=== PATIENT | male | born 1950 | race Caucasian/White ===

== ENCOUNTER 2020-04-02 09:24 | Emergency (ER) | payer MEDICARE, OTHER, SELFPAY ==
[2020-04-02 09:35] VITALS: BP 145/78; PULSE 103; RESP 16; TEMP 36.7; O2SAT 99
--- NOTE | 2020-04-02 09:56 | ED.GENADULT ---
HPI - General Adult General Chief complaint: Eye Problems Stated complaint: EYE REDNESS Time Seen by Provider: 04/02/20 09:56 Source: patient Mode of arrival: ambulatory Limitations: no limitations History of Present Illness HPI narrative: 70-year-old male patient presents to the [facility] with complaints of right eye redness for the past 2 days. Patient states it has been itchy and noticed today that it was more red than it was yesterday. Patient states he has had a little bit of clear tearing from the area but no copious amounts of discharge or colored discharge. Denies any sensation of a foreign body. Denies any sensitivity to the light. Patient denies any injury that he is aware of. Patient states he has been playing a lot of golf lately but denies working out in the yard. Denies any fevers, body aches or chills. Denies any stuffy nose, runny nose or sneezing. Related Data Home Medications Medication Instructions Recorded Confirmed amlodipine 5 mg PO DAILY 06/14/19 04/02/20 aspirin [Adult Low Dose Aspirin] 81 mg PO DAILY 06/14/19 04/02/20 doxazosin 8 mg PO DAILY 06/14/19 04/02/20 doxycycline hyclate 100 mg PO DAILY 06/14/19 04/02/20 dutasteride 0.5 mg PO DAILY 06/14/19 04/02/20 fenofibrate 160 mg PO DAILY 06/14/19 04/02/20 fexofenadine 180 mg PO DAILY 06/14/19 04/02/20 glucos sul [id number] cap PO 06/14/19 [Glucosamine Chondroitin] hydrochlorothiazide 12.5 mg PO BID 06/14/19 04/02/20 rosuvastatin 20 mg PO DAILY 06/14/19 04/02/20 testosterone 1 packet TRANSDERMAL DAILY 06/14/19 04/02/20 trazodone 50 mg PO HS 06/14/19 04/02/20 valsartan-hydrochlorothiazide 1 tablet PO DAILY 06/14/19 04/02/20 Allergies Allergy/AdvReac Type Severity Reaction Status Date / Time No Known Allergies Allergy Verified 04/02/20 09:30 Review of Systems Review of Systems: Narrative: CONSTITUTIONAL: Denies fever, chills, or sweats. EYES: Denies visual changes, positive right eye redness, with clear discharge. ENT: Denies rhinorrhea, congestion, sore throat, or otalgia. CARDIOVASCULAR: Denies chest pain, palpitations, or edema. RESPIRATORY: Denies cough or dyspnea. GASTROINTESTINAL: Denies abdominal pain, nausea, vomiting, or diarrhea. GENITOURINARY: Denies dysuria or hematuria. SKIN: Denies rash or itching. MUSCULOSKELETAL: Denies back pain, joint pain, or myalgia. NEUROLOGIC: Denies headache, numbness, or weakness. PSYCHIATRIC: Denies anxiety or depression. [facility] Past Medical History Medical History Bronchitis Diverticulitis Surgical History Surgical History H/O colonoscopy Social History Social History Smoking status: Never smoker Alcohol intake: current Comments At the time of my signature I agree with nursing past medical history, surgical, social, and family history. There is no relevant family history pertinent to the presenting complaint. Exam Narrative: Exam Narrative: GENERAL: Well-appearing, well-nourished, and in no acute distress. HEAD: Normocephalic, atraumatic. EYES: PERRLA and EOM intact without limitation or complaint of pain, no periorbital soft tissue swelling ,no erythema, warmth or tenderness noted, no obvious deformity. No crusting or swelling.no tearing or draining.No photophobia. No nystagmus No FB or lesion on lid eversion. Corneas grossly clear, no obvious FB or hyphens/hypopyon. injection to right sclera. Erythema and swelling noted to the right conjunctive a lids and lashes clear. ENT: Nares clear, no rhinorrhea or epistaxis. Mucous membranes moist. NECK: Supple. No lymphadenopathy CHEST: Clear to auscultation. No respiratory distress. HEART: Regular rate and rhythm. No murmur heard. Normal peripheral pulses. ABDOMEN: Soft, nontender, nondistended, normal active bowel sounds. EXTREMITIES: Normal range of motion. No edema. SKI
== END 2020-04-02 10:21 | disposition home or self-care (01) ==
PROVIDERS: Emergency Provider Nurse Practitioner Family; PCP Family Medicine Sports Medicine
DX: B30.9 Viral conjunctivitis, unspecified (principal); Z79.82 Long term (current) use of aspirin; E78.00 Pure hypercholesterolemia, unspecified; I10 Essential (primary) hypertension; Z95.5 Presence of coronary angioplasty implant and graft
CPT/HCPCS: 99213; A9270; G0463

== ENCOUNTER 2022-05-09 13:09 | Outpatient (CLI) | payer MEDICARE, OTHER, SELFPAY ==
--- NOTE | ~2022-05-09 | US_ITS ---
EXAMINATION: US venous doppler [facility] DATE: 05/09/2022 13:52 INDICATION: LEFT LEG PAIN . TECHNIQUE: Grayscale images without and with compression and Doppler images of the left lower extremi ty veins were obtained. COMPARISON: None FINDINGS: The left common femoral vein, profunda femoral vein, femoral vein, popliteal vein, peroneal vein, pos terior tibial veins, gastrocnemius vein, and greater saphenous vein are patent. IMPRESSION: 1. Patent left lower extremity veins. No evidence of deep venous thrombosis. Reviewed, dictated and finalized at location K. ICAL OPERATIONS SPECIALIST
== END 2022-05-09 13:10 | disposition home or self-care (01) ==
PROVIDERS: PCP Family Medicine Sports Medicine; Visit Provider Orthopaedic Surgery
DX: M79.605 Pain in left leg (principal); Z47.1 Aftercare following joint replacement surgery; Z96.652 Presence of left artificial knee joint
CPT/HCPCS: 93971

== ENCOUNTER 2023-04-29 17:19 | Inpatient (IN) | payer MEDICARE, OTHER, SELFPAY ==
--- NOTE | ~2023-04-29 | CT_ITS ---
CT of the Abdomen and Pelvis: Indication: Diverticulitis Technique: 2.5 mm axial scans were obtained through the abdomen and pelvis following intravenous adm inistration of 100 cc of Omnipaque 350. Dose reduction technique was used on this scan by utilizing a utomated exposure control and iterative reconstruction technique. The dose-length product (DLP) was 1 119.28 mGy-cm. Findings: Scans through the lung bases are unremarkable. The liver, spleen, pancreas, gallbladder, adrenals and kidneys are within normal limits. There are at herosclerotic calcifications of the aorta. No lymphadenopathy. There is wall thickening and inflammatory change of the distal descending colon, compatible with acut e diverticulitis. There is a small pericolonic abscess with small air-fluid level measuring 3 cm in d iameter (axial image 121). No bowel obstruction. Small fat-containing umbilical hernia noted. Images through the pelvis were performed. Prostate gland is probably enlarged, and indents through th e bladder base. Urinary bladder otherwise unremarkable. No ascites. Impression: Diverticulitis of the distal descending colon, with 3 cm pericolonic abscess. Enlarged prostate gland which indents through the bladder base. Reviewed, dictated and finalized at location . UCTION CONTROL TECHNOLOGIST Impression: Diverticulitis of the distal descending colon, with 3 cm pericolonic abscess. Enlarged prostate gland which indents through the bladder base.
--- NOTE | ~2023-04-29 | US_ITS ---
EXAMINATION: US guide abscess drainage DATE: 04/30/2023 15:13 INDICATION: Diverticular abscess TECHNIQUE: The procedure including the risks and benefits was discussed with the patient. Risks discu ssed included bleeding including hemorrhage and bile peritonitis. Oral and written consent were obtai melissa. The patient was confirmed to be receiving appropriate antibiotic coverage. The skin overlying t he anterolateral left abdominal wall was prepped and draped in usual sterile fashion. Anesthetic was administered with 1% lidocaine subcutaneously. An 8.5 Fr catheter was inserted into the abscess cavi ty by trocar technique under continuous sonographic guidance. The metal stiffener and trocar needle w ere removed, and the pigtail tip was locked. 5 mL of opaque appiah-colored purulent appearing fluid was aspirated and sent for culture. The catheter was stitched to the skin with suture. An additional adhe sive fixation device was applied. There were no immediate complications. FINDINGS: 3.4 x 3.1 x 1.8 cm loculated anechoic fluid collection consistent corresponding to the absc ess seen on prior CT is seen along the anterior abdominal wall. Subsequent images demonstrate the kamala inage catheter advanced into the abscess. 5 mm of opaque appiah-colored purulent appearing fluid was asp irated and sent to lab for cultures. On real-time imaging at the conclusion procedure the formed loop of the catheter is present within the nearly decompressed abscess cavity. IMPRESSION: 1. Successful ultrasound-guided left abdominal percutaneous abscess drain catheter placement. 2. 5 mL of purulent appearing fluid was sent for aerobic, anaerobic, and fungal cultures. 3. The catheter will be managed by Dr. English. Reviewed, dictated and finalized at location A. ENT SEWER HAND IMPRESSION: 1. Successful ultrasound-guided left abdominal percutaneous abscess drain tisha ter placement. 2. 5 mL of purulent appearing fluid was sent for aerobic, anaerobic, and fungal cultures. 3. The catheter will be managed by Dr. English.
[2023-04-29 18:28] VITALS: BP 112/84; PULSE 94; RESP 18; TEMP 36.3; O2SAT 99
[2023-04-29 20:11] LABS: Basophils Percent Auto 0.2 % (0.2-1.2); Eosinophils Absolute Auto 0.1 K/mm3 (0-0.3); Eosinophils Percent Auto 0.9 % (0-4.4); Hematocrit 42.7 % (42.0-52.0); Hemoglobin 14.1 g/dL (14.0-18.0); Immature Granulocyte Absolute 0.04 K/mm3 (0.00-0.031); Immature Granulocyte Percent A 0.4 % (0-0.5); Lymphocytes Percent Auto 11.1 % (18.3-44.2); Mean Corpuscular Hemoglobin 30.7 pg (26-34); Mean Platelet Volume 9.2 fl (7.4-10.4); Monocytes Absolute Auto 1.3 K/mm3 (0.1-0.6); Monocytes Percent Auto 14.8 % (2.6-8.5); Neutrophils Absolute Auto 6.5 K/mm3 (1.3-6.7); Neutrophils Percent Auto 72.6 % (45.5-73.1); Platelet Count Result 224 k/mm3 (150-375); Red Blood Count 4.59 M/mm3 (4.6-6.20); Red Cell Distribution Width 13.4 % (11.5-14.5)
[2023-04-29 20:23] LABS: Alanine Aminotransferase 23 U/L (6-50); Albumin Level 4.5 g/dL (3.5-5.1); Alkaline Phosphatase 80 U/L (38-126); Anion Gap 13 mmol/L (8-16); Aspartate Amino Transferase 25 U/L (17-59); Bilirubin,Total 0.6 mg/dL (0.2-1.3); Blood Urea Nitrogen 27 mg/dL (9-20); Calcium 10.3 mg/dL (8.4-10.2); Carbon Dioxide 24 mmol/L (22-30); Chloride 97 mmol/L (98-107); Estimated CRCL calculation 41 ml/min; Estimated Glomerular Filt Rate 40; Glucose 109 mg/dL (65-110); Lipase 144 U/L (23-300); Potassium 4.1 mmol/L (3.4-5.0); Sodium 134 mmol/L (137-145)
[2023-04-29 20:34] LABS: Appearance Urine Clear (Clear); Bilirubin Urine Negative (Negative); Blood Urine Negative (Negative); Color Urine Yellow (Yellow); Glucose Urine UA Negative (Negative); Ketones Urine Negative (Negative); Leukocyte Esterase Ur Negative LEU/UL (Negative); Nitrate Urine Negative (Negative); Protein Urine Negative (Negative); Specific Grav Ur 1.012 (1.001-1.035); Urobilinogen Urine 0.2 mg/dL (<2.0)
[2023-04-29 20:45] LABS: Add Urine Microscopic? NO
[2023-04-29 21:49] VITALS: BP 137/76; PULSE 95; RESP 18; O2SAT 100
[2023-04-29 23:49] VITALS: BP 173/87; PULSE 94; RESP 18; O2SAT 100
[2023-04-30] VITALS (10 sets, daily range): BP systolic 134–166; BP diastolic 71–85; PULSE 89–103; RESP 16–18; TEMP 36.2–36.8; O2SAT 96–100; BMI 30.9
--- NOTE | 2023-04-30 00:35 | ED.ABDPAIN ---
HPI - Abdominal Pain General Chief Complaint: Abdominal Pain Stated Complaint: diverticulitis Time Seen by Provider: 04/29/23 23:48 History of Present Illness HPI narrative: The patient is a 73-year-old male with a history of hypertension presenting with abdominal pain. Patient states that he has had several bouts of diverticulitis over the 2 years. States that he has been having left-sided abdominal pain for the last week. Patient has been treated with oral antibiotics by his PCP. Today he went in for follow-up and was complaining of persistent pain so a CT abdomen pelvis was obtained and showed an abscess so he was advised to come in for evaluation. States that the pain is in the left lower quadrant. Reports decreased appetite but no vomiting. No further complaints. Related Data Home Medications Medication Instructions Recorded Confirmed amlodipine 5 mg tablet 5 mg PO DAILY 06/14/19 04/30/23 aspirin 81 mg tablet,delayed 81 mg PO DAILY 06/14/19 04/30/23 release (Adult Low Dose Aspirin) doxazosin 8 mg tablet 8 mg PO DAILY 06/14/19 04/30/23 dutasteride 0.5 mg capsule 0.5 mg PO DAILY 06/14/19 04/30/23 glucosamine sulf dipot 1 cap PO DAILY 06/14/19 04/30/23 chlr,msm,chond 550 mg-C 30 mg-nadine 1 mg capsule (Glucosamine Chondroitin) rosuvastatin 20 mg tablet 20 mg PO DAILY 06/14/19 04/30/23 Daily Multivitamin 1 tab-cap PO DAILY 04/30/23 04/30/23 celecoxib 200 mg capsule 200 mg PO BID 04/30/23 04/30/23 fenofibrate micronized 134 mg 134 mg PO DAILY 04/30/23 04/30/23 capsule metoprolol succinate 50 mg 50 mg PO DAILY 04/30/23 04/30/23 tablet,extended release 24 hr trazodone 100 mg tablet 100 mg PO HS 04/30/23 04/30/23 triamterene 37.5 1 cap PO DAILY 04/30/23 04/30/23 mg-hydrochlorothiazide 25 mg capsule Allergies Allergy/AdvReac Type Severity Reaction Status Date / Time No Known Allergies Allergy Verified 04/29/23 23:54 Review of Systems Review of Systems: All systems reviewed & are unremarkable except as noted in HPI and below PMFSH Past Medical History Medical History BPH (benign prostatic hyperplasia) Bronchitis Hypertension ADRIANNA (obstructive sleep apnea) Surgical History Surgical History H/O colonoscopy History of knee replacement, total History of tonsillectomy Family History Family History Mother Breast cancer Father Diabetes mellitus Social History Social History Smoking packs per day: 2 Smoking cigarettes per day: 40.0 Years smoked: 20 Smoking pack-years: 40.00 Smoking status: Former smoker Alcohol intake: current Drinks per week: 4 Alcohol use details: Drinks 1-2 alcoholic beverages about 4 times per week Substance use: never Lack of Transportation: No Lack of Food: Never True Current Housing: I Have Housing Concerned About Future Housing: No Difficulty Paying Gas/Electric Bills: No Difficulty Paying for Meds: No Currently Unemployed: No Education: Decline to Answer Difficulty w/ Childcare or Family Care: No Spiritual care concerns: No Exam Narrative: GENERAL: Well-appearing, nontoxic, no acute distress HEAD: Normocephalic, atraumatic. EYES: PERRLA and EOMI. ENT: Mucous membranes moist. NECK: Supple. CHEST: No respiratory distress. HEART: Regular rate and rhythm ABDOMEN: Soft, + left lower quadrant tenderness without guarding rebound EXTREMITIES: Normal range of motion. No edema. SKIN: Warm, dry, no rash. NEURO: No focal deficits. Alert and oriented x3. PSYCH: Normal mood and affect. Course Vital Signs Vital signs: Vital Signs Temperature 97.4 F L 04/29/23 18:28 Pulse Rate 94 04/29/23 18:28 Respiratory Rate 18 04/29/23 18:28 Blood Pressure 112/84 04/29/23 18:28 Pulse Oximetr
[2023-04-30] MEDS: SODIUM CHLORIDE 0.9% IV 1,000 ML 999 ML IV CONT (00:50)
[2023-04-30] MEDS: HYDROmorphone HCL INJ (*CRX) 1 MG/ML SYR 0.5 MG IV PUSH ×4 (00:51→15:26)
[2023-04-30] MEDS: PIPERACILLIN/TAZ 4.5G/NS 100ML 4.5 GM/100 ML BAG IVPB (00:55)
--- NOTE | 2023-04-30 08:50 | PM.IMHP ---
H&P: HPI History of Present Illness Date/Time: 04/30/23 08:50 Chief Complaint: abdominal pain Narrative: 73-year-old male with history of hypertension and diverticulosis is presenting with abdominal pain. Patient reports 2 week history of left-sided abdominal pain. He disease PCP recommended antibiotics. However, symptoms continued to progress and therefore he presented to the ER. CT abdomen and pelvis was concerning for abscess knee was admitted for IV antibiotics and further care. No chest pain or shortness of breath. No nausea, vomiting or diarrhea. No fevers or chills. He does admit to a decreased appetite. Review of Systems Review of Systems: 12 point review of systems was assessed and was negative except as noted in the HPI [facility] Past Medical History Medical History BPH (benign prostatic hyperplasia) Bronchitis Hypertension ADRIANNA (obstructive sleep apnea) Surgical History Surgical History H/O colonoscopy History of knee replacement, total History of tonsillectomy Family History Family History Mother Breast cancer Father Diabetes mellitus Social History Social History Smoking packs per day: 2 Smoking cigarettes per day: 40.0 Years smoked: 20 Smoking pack-years: 40.00 Smoking status: Former smoker Alcohol intake: current Drinks per week: 4 Alcohol use details: Drinks 1-2 alcoholic beverages about 4 times per week Substance use: never Lack of Transportation: No Lack of Food: Never True Current Housing: I Have Housing Concerned About Future Housing: No Difficulty Paying Gas/Electric Bills: No Difficulty Paying for Meds: No Currently Unemployed: No Education: Decline to Answer Difficulty w/ Childcare or Family Care: No Spiritual care concerns: No Meds Home Medications and Allergies Home Medications Medication Instructions Recorded Confirmed Type amlodipine 5 mg tablet 5 mg PO DAILY 06/14/19 04/02/20 History aspirin 81 mg tablet,delayed 81 mg PO DAILY 06/14/19 04/02/20 History release (Adult Low Dose Aspirin) doxazosin 8 mg tablet 8 mg PO DAILY 06/14/19 04/02/20 History doxycycline hyclate 100 mg capsule 100 mg PO DAILY 06/14/19 04/02/20 History dutasteride 0.5 mg capsule 0.5 mg PO DAILY 06/14/19 04/02/20 History fenofibrate 160 mg tablet 160 mg PO DAILY 06/14/19 04/02/20 History fexofenadine 180 mg tablet 180 mg PO DAILY 06/14/19 04/02/20 History glucosamine sulf dipot cap PO 06/14/19 History chlr,msm,chond 550 mg-C 30 mg-nadine 1 mg capsule (Glucosamine Chondroitin) hydrochlorothiazide 12.5 mg capsule 12.5 mg PO BID 06/14/19 04/02/20 History rosuvastatin 20 mg tablet 20 mg PO DAILY 06/14/19 04/02/20 History testosterone 50 mg/5 gram (1 %) 1 packet transdermal DAILY 06/14/19 04/02/20 History transdermal gel trazodone 50 mg tablet 50 mg PO HS 06/14/19 04/02/20 History valsartan 160 1 tablet PO DAILY 06/14/19 04/02/20 History mg-hydrochlorothiazide 12.5 mg tablet ketotifen fumarate 0.025 % (0.035 1 drop ophthalmic (eye) BID PRN 04/02/20 Rx %) eye drops (Zaditor) allergy symptoms 5 days #5 mL Allergies Allergy/AdvReac Type Severity Reaction Status Date / Time No Known Allergies Allergy Verified 04/29/23 23:54 Vital Signs Vital Signs - 24 hr 04/29/23 18:28 04/29/23 21:49 04/29/23 23:49 Temperature 97.4 F L Pulse Rate 94 95 94 Respiratory Rate 18 18 18 Blood Pressure 112/84 137/76 173/87 H Pulse Oximetry 99 100 100 Oxygen Delivery Room Air 04/30/23 01:53 04/30/23 03:44 04/30/23 05:50 Temperature Pulse Rate 102 H 89 Respiratory Rate 18 16 Blood Pressure 166/81 H 152/85 H 154/76 H Pulse Oximetry 100 97 Oxygen Delivery 04/30/23 06:01 04/30/23 07:42 Temperature 97.7
[2023-04-30 09:30] LABS: Basophils Percent Auto 0.3 % (0.2-1.2); Eosinophils Absolute Auto 0.1 K/mm3 (0-0.3); Eosinophils Percent Auto 0.9 % (0-4.4); Hemoglobin 12.4 g/dL (14.0-18.0); Immature Granulocyte Absolute 0.03 K/mm3 (0.00-0.031); Immature Granulocyte Percent A 0.3 % (0-0.5); Lymphocytes Absolute Auto 0.96 K/mm3 (0.9-3.2); Mean Corpuscular HGB Conc 33.5 g/dl (32-36); Mean Corpuscular Hemoglobin 31.2 pg (26-34); Mean Corpuscular Volume 93.2 fl (80-100); Mean Platelet Volume 9.1 fl (7.4-10.4); Monocytes Absolute Auto 1.3 K/mm3 (0.1-0.6); Monocytes Percent Auto 15.3 % (2.6-8.5); Neutrophils Absolute Auto 6.3 K/mm3 (1.3-6.7); Neutrophils Percent Auto 72.2 % (45.5-73.1); Platelet Count Result 213 k/mm3 (150-375); Red Blood Count 3.97 M/mm3 (4.6-6.20); Red Cell Distribution Width 13.6 % (11.5-14.5); White Blood Count 8.7 K/mm3 (4.5-10.0)
[2023-04-30 09:41] LABS: Alanine Aminotransferase 19 U/L (6-50); Alkaline Phosphatase 66 U/L (38-126); Anion Gap 12 mmol/L (8-16); Aspartate Amino Transferase 26 U/L (17-59); Bilirubin,Total 0.5 mg/dL (0.2-1.3); Blood Urea Nitrogen 28 mg/dL (9-20); Calcium 9.6 mg/dL (8.4-10.2); Carbon Dioxide 24 mmol/L (22-30); Chloride 100 mmol/L (98-107); Estimated CRCL calculation 50 ml/min; Estimated Glomerular Filt Rate 50; Glucose 107 mg/dL (65-110); Potassium 3.9 mmol/L (3.4-5.0); Sodium 136 mmol/L (137-145)
--- NOTE | 2023-04-30 09:47 | PM.CNGS ---
Assessment and Plan Assessment and plan (1) Diverticulitis of intestine with abscess: Code(s): K57.80 - Diverticulitis of intestine, part unspecified, with perforation and abscess without bleeding Status: Acute Assessment and Plan: CT evidence of diverticulitis of the distal descending colon and a 3 cm pericolonic abscess. No peritoneal signs on exam. WBC count normal. Discussed the case with Dr. English and reviewed the CT with the Radiologist. Will keep him NPO for now and order US-guided percutaneous drainage. Continue IV Zosyn, IV fluids, and analgesics as needed. Okay to start clear liquids after drain is placed. (2) Acute kidney injury: Code(s): N17.9 - Acute kidney failure, unspecified Status: Acute Assessment and Plan: Creatinine 1.7 on admission. No known history of chronic kidney disease. Repeat labs ordered this morning. Will initiate maintenance IV fluids. Could be related to dehydration as he has not been drinking much lately. Management per primary service. (3) Hypertension: Code(s): I10 - Essential (primary) hypertension Status: Acute Assessment and Plan: Okay to resume home medications per primary service. (4) ADRIANNA (obstructive sleep apnea): Code(s): G47.33 - Obstructive sleep apnea (adult) (pediatric) Status: Acute Assessment and Plan: Patient brought his home CPAP. Plan I have discussed the patient's case and plan of care with Dr. English. Thank you for allowing us to see the patient in consultation and we will continue to follow along with you. History of Present Illness Consult details Consult date: 04/30/23 Reason for consult: other (Diverticulitis with abscess) Requesting physician: Gely Woods MD Narrative: This is a 73-year-old man who we have been asked to see in surgical consultation for diverticulitis with abscess. He reports having a right total knee arthroplasty about 5 weeks ago. He was taking narcotics postoperatively and became constipated. He took multiple laxatives, stool softeners, and enemas. A few days after surgery, he began moving his bowels and started having multiple loose stools. About a week ago, he developed left lower quadrant abdominal pain. He saw his primary care provider last , who prescribed him ciprofloxacin and metronidazole with suspicion of diverticulitis. He has had 3 episodes in the last 20 years that were treated with antibiotics as an outpatient. His abdominal pain improved, but overall he was still feeling unwell. He had some mild intermittent nausea, but no vomiting. No fever or chills. He had a follow-up appointment yesterday and was still having some abdominal pain without much improvement. His PCP ordered labs and a CT scan at [place] as an outpatient that showed diverticulitis with an abscess. He was called with these results and instructed to go to the ER. He decided to come to [facility]. CT scan of the abdomen and pelvis here showed diverticulitis of the distal descending colon with a 3 cm pericolonic abscess, and a large prostate gland that indents through the bladder base. Labs were significant for acute kidney injury with a creatinine 1.7. He denies any known history of chronic kidney disease. He admits to not drinking well since his surgery about 5 weeks ago and has noticed dark urine over the past few days. White blood cell count was normal. He was admitted and given 1 dose of IV Zosyn and 1 L of IV fluids in the ER. He is currently NPO and seen on the medical floor. His abdominal pain improved with the IV Dilaudid. His last colonoscopy was 1 year ago and reported normal other than findings of diverticulosis. Denies any previous abdominal surgeries. There is a small fat containing umbilical hernia on CT, which she denies any symptoms of or noticing a bulge from this. Review of Systems Review of Systems: All systems reviewed & are unremarkable except as noted in HPI an
[2023-04-30 10:44] LABS: Partial Thromboplastin Time 28.1 SECONDS (22.3-36.8)
[2023-04-30] MEDS: SODIUM CHLORIDE 0.9% IV 1,000 ML 100 ML IV CONT (11:37)
[2023-04-30] MEDS: PIPERACILLN/TAZ 3.375GM/NS50ML 3.375 GM/50 ML BAG IVPB ×2 (11:38→17:38)
[2023-04-30] MEDS: DOXAZOSIN MESYLATE 4 MG TABLET 8 MG PO (17:36)
[2023-04-30] MEDS: TRIAMTERENE 37.5 MG/HCTZ 25 MG (MAXZIDE) TABLET 1 TAB PO (17:36)
[2023-04-30] MEDS: METOPROLOL SUCCINATE EXT REL 50 MG TABCR PO (17:37)
[2023-04-30] MEDS: DUTASTERIDE 0.5 MG CAPSULE PO (17:37)
[2023-04-30] MEDS: amLODIPine BESYLATE 5 MG TABLET PO (17:37)
[2023-04-30] MEDS: ASPIRIN 81 MG ENTERIC TABLET PO (17:37)
[2023-04-30] MEDS: HYDROmorphone HCL INJ (*CRX) 1 MG/ML SYR IV PUSH ×2 (17:54→21:41)
[2023-04-30] MEDS: traZODone HCL 50 MG TABLET 100 MG PO (20:15)
[2023-04-30] MEDS: MELATONIN 5 MG TABLET PO (20:15)
[2023-04-30 21:50] LABS: Toxigenic C. Diff NEGATIVE (NEGATIVE)
[2023-05-01] VITALS (9 sets, daily range): BP systolic 142–155; BP diastolic 65–83; PULSE 79–91; RESP 14–18; TEMP 36.1–36.8; O2SAT 95–99
[2023-05-01] MEDS: PIPERACILLN/TAZ 3.375GM/NS50ML 3.375 GM/50 ML BAG IVPB ×3 (00:19→11:22)
[2023-05-01] MEDS: HYDROmorphone HCL INJ (*CRX) 1 MG/ML SYR IV PUSH ×2 (00:43→04:13)
[2023-05-01 06:46] LABS: Basophils Percent Auto 0.3 % (0.2-1.2); Eosinophils Absolute Auto 0.1 K/mm3 (0-0.3); Hematocrit 37.8 % (42.0-52.0); Hemoglobin 12.1 g/dL (14.0-18.0); Immature Granulocyte Absolute 0.05 K/mm3 (0.00-0.031); Immature Granulocyte Percent A 0.6 % (0-0.5); Lymphocytes Absolute Auto 1.16 K/mm3 (0.9-3.2); Lymphocytes Percent Auto 13.5 % (18.3-44.2); Mean Corpuscular Hemoglobin 30.6 pg (26-34); Mean Corpuscular Volume 95.5 fl (80-100); Mean Platelet Volume 9.5 fl (7.4-10.4); Monocytes Absolute Auto 1.4 K/mm3 (0.1-0.6); Monocytes Percent Auto 15.9 % (2.6-8.5); Neutrophils Absolute Auto 5.9 K/mm3 (1.3-6.7); Neutrophils Percent Auto 68.7 % (45.5-73.1); Platelet Count Result 236 k/mm3 (150-375); Red Blood Count 3.96 M/mm3 (4.6-6.20); Red Cell Distribution Width 13.7 % (11.5-14.5); White Blood Count 8.6 K/mm3 (4.5-10.0)
[2023-05-01 07:05] LABS: Alanine Aminotransferase 17 U/L (6-50); Albumin Level 3.9 g/dL (3.5-5.1); Alkaline Phosphatase 63 U/L (38-126); Anion Gap 10 mmol/L (8-16); Aspartate Amino Transferase 23 U/L (17-59); Bilirubin,Total 0.5 mg/dL (0.2-1.3); Blood Urea Nitrogen 23 mg/dL (9-20); Calcium 9.2 mg/dL (8.4-10.2); Carbon Dioxide 26 mmol/L (22-30); Chloride 100 mmol/L (98-107); Estimated CRCL calculation 58 ml/min; Estimated Glomerular Filt Rate 60; Glucose 101 mg/dL (65-110); Potassium 3.7 mmol/L (3.4-5.0); Sodium 136 mmol/L (137-145)
[2023-05-01] MEDS: ACETAMINOPHEN 500 MG TABLET 1000 MG PO ×3 (08:33→20:29)
[2023-05-01] MEDS: TRIAMTERENE 37.5 MG/HCTZ 25 MG (MAXZIDE) TABLET 1 TAB PO (08:34)
[2023-05-01] MEDS: MULTIVITAMINS THERAPEUTIC TAB (*BKC) 1 TABLET PO (08:34)
[2023-05-01] MEDS: DOXAZOSIN MESYLATE 4 MG TABLET 8 MG PO (08:34)
[2023-05-01] MEDS: DUTASTERIDE 0.5 MG CAPSULE PO (08:34)
[2023-05-01] MEDS: amLODIPine BESYLATE 5 MG TABLET PO (08:34)
[2023-05-01] MEDS: ASPIRIN 81 MG ENTERIC TABLET PO (08:35)
[2023-05-01] MEDS: METOPROLOL SUCCINATE EXT REL 50 MG TABCR PO (08:35)
--- NOTE | 2023-05-01 10:31 | PM.PNGS ---
Progress Note: A&P Assessment and Plan (1) Diverticulitis of intestine with abscess: Code(s): K57.80 - Diverticulitis of intestine, part unspecified, with perforation and abscess without bleeding Status: Acute Assessment and Plan: Continues to improve, s/p perc drainage yesterday in IR, no output from the perc drain overnight or this morning. His pain seems to be related to the perc drain, which I removed today at the bedside. Will add additional oral analgesics and encouraged to reduce IV Dilaudid if possible. Will advance diet as tolerated to low fiber. Consult the dietitian. If he is able to tolerate a low fiber diet and pain improves after drain is removed, then he can discharge home later today on oral antibiotics and follow-up with Dr. English in 2 weeks. (2) Acute kidney injury: Code(s): N17.9 - Acute kidney failure, unspecified Status: Acute Assessment and Plan: Improving, creatinine down to 1.2 Plan I have discussed the patient's case and plan of care with Dr. English. Subjective Subjective Date/Time Seen: 05/01/23 10:31 Patient reports: no new complaints, voiding w/o difficulty, flatus, bowel movement (loose stools, no blood in stool) and afebrile Interval history: Patient reports having pain through the night. His LLQ abdominal pain has improved, but his pain is a different pain at the perc drain site. He reports it was very painful when they put it on suction and he keeps having quick intermittent stabbing pains at the perc drain site. No nausea or vomiting. Tolerating clear liquids. No output from perc drain since placement yesterday. Review of Systems Review of Systems: All systems reviewed & are unremarkable except as noted in HPI and below Exam Const: General: comfortable and no acute distress Orientation/consciousness: patient oriented x3 GI: Inspection: non-distended GI Palp: Yes Soft to palpation, Yes Tenderness to palpation present (GI) (only tender at the perc drain site), No Guarding due to palpation present (GI) and No Rebound tenderness present Auscultation: normal bowel sounds Other: perc drain in LLQ with scant serous output Objective Data Vital Signs Vital Signs: Vital Signs - 24 hr 04/30/23 13:49 04/30/23 17:37 04/30/23 22:00 Temperature 97.1 F L 98.3 F Pulse Rate 92 96 90 Respiratory Rate 18 16 Blood Pressure 161/81 H 134/71 Pulse Oximetry 98 98 04/30/23 22:35 05/01/23 02:48 05/01/23 04:17 Temperature Pulse Rate Respiratory Rate Blood Pressure Pulse Oximetry 96 96 96 05/01/23 06:00 05/01/23 08:35 Temperature 98.2 F Pulse Rate 91 82 Respiratory Rate 14 Blood Pressure 155/82 H Pulse Oximetry 96 Intake/Output Intake/Output: Intake & Output 04/28/23 04/29/23 04/30/23 05/01/23 23:59 23:59 23:59 23:59 Intake Total 1440 590 Output Total 5 Balance 1435 590 Meds/Results Medications: Active Medications Generic Name Dose Route Start Last Admin Trade Name Freq PRN Reason Stop Dose Admin Acetaminophen 1,000 mg 04/30/23 09:54 05/01/23 08:33 Acetaminophen 500 Mg Tablet PO 1,000 mg Q6H PRN Administration Mild Pain (1-3) or Fever Amlodipine Besylate 5 mg 04/30/23 16:30 05/01/23 08:34 Amlodipine Besylate 5 Mg Tablet PO 5 mg DAILY NOVA Administration Aspirin 81 mg 04/30/23 16:35 05/01/23 08:35 Aspirin 81 Mg Enteric Tablet PO 81 mg DAILY NOVA Administration Doxazosin Mesylate 8 mg 04/30/23 16:35 05/01/23 08:34 Doxazosin Mesylate 4 Mg Tablet PO 8 mg DAILY NOVA Administration Dutasteride 0.5 mg 04/30/23 16:35 05/01/23 08:34 Dutasteride 0.5 Mg Capsule PO 0.5 mg DAILY NOVA Administration Hydromorphone HCl 1 mg 04/30/23 16:35 05/01/23 04:13 Hydromorphone Hcl Inj (*Crx) 1 Mg/Ml Syr IV PUSH 1 mg Q3H PRN Administration Pain Rated 7-10 Piperacillin/Tazobactam/Dextrose 3.375 gm in 50 mls @ 100 mls/hr 04/30/23 08:40 05/01/23 05:
--- NOTE | 2023-05-01 13:29 | PM.IMPN ---
Progress Note: A&P Assessment and Plan (1) Diverticulitis: Code(s): K57.92 - Diverticulitis of intestine, part unspecified, without perforation or abscess without bleeding Status: Deleted Assessment and Plan: CT scan shows a 3 cm pericolonic abscess and acute diverticulitis of the distal descending colon. Patient underwent successful ultrasound-guided left abdominal percutaneous abscess drain with removal of 5 mL of purulent material Abscess culture results pending. General surgery is consulted Started on Zosyn 04/30. Changed to levaquin/Flagyl on 05/01 Feels much better today. Drain was removed by General surgery earlier today. Diet was started with plans to advance as tolerated. Still was requiring Dilaudid earlier today but nothing since this morning. (2) Hypertension: Code(s): I10 - Essential (primary) hypertension Status: Acute Assessment and Plan: Patient's blood pressure was reviewed on 05/01 Blood pressure elevated at times probably related to pain. Will continue current medications. Continue to follow. (3) Acute kidney injury: Code(s): N17.9 - Acute kidney failure, unspecified Status: Acute Assessment and Plan: No baseline creatinine values to compare but creatinine was 1.7 on admission. With IV fluids, creatinine has trended down to 1.2. He is on max side which has been continued. Will stop IV fluids. Stop ibuprofen. (4) ADRIANNA (obstructive sleep apnea): Code(s): G47.33 - Obstructive sleep apnea (adult) (pediatric) Status: Acute Assessment and Plan: Compliant with treatment. Continue the same. Plan DVT prophylaxis with SCDs GI prophylaxis not indicated Code status full code Subjective Date/time seen: 05/01/23 13:29 Interval history: 73yo male with ADRIANNA and HTN here for abdominal pain Assuming care. Chart reviewed. Patient feels well today. Minimal abdominal pain. No chest pain. No shortness of breath. Tolerating full liquid diet. Positive bowel movements. Exam Narrative: AF 98.2 155/82 14 97% ra Gen - NARD Chest - CTA bilaterally, nml RR CV - RRR S1/S2 Abd -soft. Minimal tenderness lower left dressing is clean, dry and intact. Ext - No pedal edema Psych - Nml mood and affect Skin - Warm and dry Objective Data Vital Signs Vital Signs: Vital Signs - 24 hr 04/30/23 13:49 04/30/23 17:37 04/30/23 22:00 Temperature 97.1 F L 98.3 F Pulse Rate 92 96 90 Respiratory Rate 18 16 Blood Pressure 161/81 H 134/71 Pulse Oximetry 98 98 Oxygen Delivery 04/30/23 22:35 05/01/23 02:48 05/01/23 04:17 Temperature Pulse Rate Respiratory Rate Blood Pressure Pulse Oximetry 96 96 96 Oxygen Delivery 05/01/23 06:00 05/01/23 08:35 05/01/23 08:34 Temperature 98.2 F Pulse Rate 91 82 Respiratory Rate 14 Blood Pressure 155/82 H Pulse Oximetry 96 97 Oxygen Delivery Room Air Intake/Output Intake/Output: Intake & Output 04/28/23 04/29/23 04/30/23 05/01/23 23:59 23:59 23:59 23:59 Intake Total 1440 640 Output Total 5 Balance 1435 640 Meds/Results Medications: Active Medications Generic Name Dose Route Start Last Admin Trade Name Freq PRN Reason Stop Dose Admin Acetaminophen 1,000 mg 04/30/23 09:54 05/01/23 08:33 Acetaminophen 500 Mg Tablet PO 1,000 mg Q6H PRN Administration Mild Pain (1-3) or Fever Hydrocodone Bitart/Acetaminophen 1 tab 05/01/23 10:32 Hydrocodone/Acetaminophen (*Crx) 5-325 Mg Tablet PO Q4H PRN Pain Rated 4-6 Amlodipine Besylate 5 mg 04/30/23 16:30 05/01/23 08:34 Amlodipine Besylate 5 Mg Tablet PO 5 mg DAILY NOVA Administration Aspirin 81 mg 04/30/23 16:35 05/01/23 08:35 Aspirin 81 Mg Enteric Tablet PO 81 mg DAILY NOVA Administration Doxazosin Mesylate 8 mg 04/30/23 16:35 05/01/23 08:34 Doxazosin Mesylate 4 Mg Tablet PO 8 mg DAILY NOVA Administration Dut
[2023-05-01] MEDS: metroNIDAZOLE 500 MG TABLET PO ×2 (14:15→20:28)
[2023-05-01] MEDS: levoFLOXacin 750 MG TABLET PO (14:15)
[2023-05-01] MEDS: HYDROcodone/acetaminophen (*CRX) 5-325 MG TABLET 1 TAB PO (16:23)
[2023-05-01] MEDS: traZODone HCL 50 MG TABLET 100 MG PO (20:28)
[2023-05-01] MEDS: MELATONIN 5 MG TABLET PO (20:28)
[2023-05-02] MEDS: ACETAMINOPHEN 500 MG TABLET 1000 MG PO ×2 (02:40→08:03)
[2023-05-02 04:08] VITALS: O2SAT 98
[2023-05-02] MEDS: metroNIDAZOLE 500 MG TABLET PO (05:51)
[2023-05-02 06:00] VITALS: BP 149/82; PULSE 77; RESP 18; TEMP 36.5; O2SAT 98
[2023-05-02 06:33] LABS: Basophils Percent Auto 0.4 % (0.2-1.2); Eosinophils Absolute Auto 0.1 K/mm3 (0-0.3); Eosinophils Percent Auto 1.6 % (0-4.4); Hematocrit 37.2 % (42.0-52.0); Hemoglobin 12.4 g/dL (14.0-18.0); Immature Granulocyte Absolute 0.03 K/mm3 (0.00-0.031); Immature Granulocyte Percent A 0.4 % (0-0.5); Lymphocytes Absolute Auto 1.21 K/mm3 (0.9-3.2); Lymphocytes Percent Auto 16.4 % (18.3-44.2); Mean Corpuscular HGB Conc 33.3 g/dl (32-36); Mean Corpuscular Hemoglobin 31.2 pg (26-34); Mean Corpuscular Volume 93.7 fl (80-100); Mean Platelet Volume 9.3 fl (7.4-10.4); Monocytes Percent Auto 13.5 % (2.6-8.5); Neutrophils Percent Auto 67.7 % (45.5-73.1); Platelet Count Result 246 k/mm3 (150-375); Red Blood Count 3.97 M/mm3 (4.6-6.20); Red Cell Distribution Width 13.4 % (11.5-14.5); White Blood Count 7.4 K/mm3 (4.5-10.0)
[2023-05-02 07:32] LABS: Alanine Aminotransferase 18 U/L (6-50); Alkaline Phosphatase 67 U/L (38-126); Anion Gap 12 mmol/L (8-16); Aspartate Amino Transferase 22 U/L (17-59); Bilirubin,Total 0.5 mg/dL (0.2-1.3); Blood Urea Nitrogen 21 mg/dL (9-20); Calcium 9.5 mg/dL (8.4-10.2); Carbon Dioxide 23 mmol/L (22-30); Chloride 101 mmol/L (98-107); Estimated CRCL calculation 58 ml/min; Estimated Glomerular Filt Rate 60; Glucose 88 mg/dL (65-110); Potassium 3.5 mmol/L (3.4-5.0); Sodium 136 mmol/L (137-145)
[2023-05-02] MEDS: DOXAZOSIN MESYLATE 4 MG TABLET 8 MG PO (08:03)
[2023-05-02] MEDS: TRIAMTERENE 37.5 MG/HCTZ 25 MG (MAXZIDE) TABLET 1 TAB PO (08:03)
[2023-05-02 08:04] VITALS: PULSE 77
[2023-05-02] MEDS: levoFLOXacin 750 MG TABLET PO (08:04)
[2023-05-02] MEDS: METOPROLOL SUCCINATE EXT REL 50 MG TABCR PO (08:04)
[2023-05-02] MEDS: amLODIPine BESYLATE 5 MG TABLET PO (08:04)
[2023-05-02] MEDS: ASPIRIN 81 MG ENTERIC TABLET PO (08:04)
[2023-05-02] MEDS: DUTASTERIDE 0.5 MG CAPSULE PO (08:04)
--- NOTE | 2023-05-02 10:46 | PM.PNGS ---
Progress Note: A&P Assessment and Plan (1) Diverticulitis of intestine with abscess: Code(s): K57.80 - Diverticulitis of intestine, part unspecified, with perforation and abscess without bleeding Status: Acute Assessment and Plan: doing well, exam benign, home c po abx and low fiber diet, f/u 2 wks Subjective Subjective Date/Time Seen: 05/02/23 10:46 Interval history: feels good this am, had some pain yesterday evening, +bowel fxn, giancarlo low fiber diet Review of Systems Review of Systems: All systems reviewed & are unremarkable except as noted in HPI and below Exam Const: General: cooperative, comfortable and no acute distress Resp: Auscultation: clear to auscultation bilaterally Cardio: Rate: regular rate Rhythm: regular rhythm GI: Inspection: normal to inspection and non-distended GI Palp: No abdominal tenderness, Yes Soft to palpation and No Tenderness to palpation present (GI) Objective Data Vital Signs Vital Signs: Vital Signs - 24 hr 05/01/23 14:00 05/01/23 20:00 05/01/23 22:00 Temperature 36.1 C L 36.2 C L Pulse Rate 83 79 83 Respiratory Rate 18 17 14 Blood Pressure 142/65 H 142/83 H Pulse Oximetry 95 96 99 Oxygen Delivery Room Air 05/01/23 22:40 05/02/23 04:08 05/02/23 06:00 Temperature 36.5 C Pulse Rate 77 Respiratory Rate 18 Blood Pressure 149/82 H Pulse Oximetry 97 98 98 Oxygen Delivery 05/02/23 08:04 Temperature Pulse Rate 77 Respiratory Rate Blood Pressure Pulse Oximetry Oxygen Delivery Intake/Output Intake/Output: Intake & Output 04/29/23 04/30/23 05/01/23 05/02/23 23:59 23:59 23:59 23:59 Intake Total 1440 1120 420 Output Total 5 Balance 1435 1120 420 Meds/Results Medications: Active Medications Generic Name Dose Route Start Last Admin Trade Name Freq PRN Reason Stop Dose Admin Acetaminophen 1,000 mg 04/30/23 09:54 05/02/23 08:03 Acetaminophen 500 Mg Tablet PO 1,000 mg Q6H PRN Administration Mild Pain (1-3) or Fever Hydrocodone Bitart/Acetaminophen 1 tab 05/01/23 10:32 05/01/23 16:23 Hydrocodone/Acetaminophen (*Crx) 5-325 Mg Tablet PO 1 tab Q4H PRN Administration Pain Rated 4-6 Amlodipine Besylate 5 mg 04/30/23 16:30 05/02/23 08:04 Amlodipine Besylate 5 Mg Tablet PO 5 mg DAILY NOVA Administration Aspirin 81 mg 04/30/23 16:35 05/02/23 08:04 Aspirin 81 Mg Enteric Tablet PO 81 mg DAILY NOVA Administration Doxazosin Mesylate 8 mg 04/30/23 16:35 05/02/23 08:03 Doxazosin Mesylate 4 Mg Tablet PO 8 mg DAILY NOVA Administration Dutasteride 0.5 mg 04/30/23 16:35 05/02/23 08:04 Dutasteride 0.5 Mg Capsule PO 0.5 mg DAILY [facility] Administration Hydromorphone HCl 1 mg 04/30/23 16:35 05/01/23 04:13 Hydromorphone Hcl Inj (*Crx) 1 Mg/Ml Syr IV PUSH 1 mg Q3H PRN Administration Pain Rated 7-10 Levofloxacin 750 mg 05/01/23 13:30 05/02/23 08:04 Levofloxacin 750 Mg Tablet PO 750 mg DAILY [facility] Administration Melatonin 5 mg 04/30/23 21:00 05/01/23 20:28 Melatonin 5 Mg Tablet PO 5 mg HS [facility] Administration Metoprolol Succinate 50 mg 04/30/23 16:35 05/02/23 08:04 Metoprolol Succinate Ext Rel 50 Mg Tabcr PO 50 mg DAILY [facility] Administration Metronidazole 500 mg 05/01/23 14:00 05/02/23 05:51 Metronidazole 500 Mg Tablet PO 500 mg Q8HR [facility] Administration Multivitamins Therapeutic 1 tablet 05/02/23 12:00 Multivitamins Therapeutic Tab (*Bkc) PO DAILY@1200 [facility] Ondansetron HCl 4 mg 04/30/23 09:54 Ondansetron Inj 4 Mg/2 Ml Vial IV PUSH Q6H PRN Nausea And Vomiting Trazodone HCl 100 mg 04/30/23 21:00 05/01/23 20:28 Trazodone Hcl 50 Mg Tablet PO 100 mg HS [facility] Administration Triamterene/Hydrochlorothiazide 1 tab 04/30/23 16:35 05/02/23 08:03 Triamterene 37.5 Mg/Hctz 25 Mg (Maxzide) Tablet PO 1 tab DAILY NOVA Administration Radiology Results: ITS Impressions
--- NOTE | 2023-05-02 11:26 | PM.DS ---
DS: Admitting Diagnosis Discharge Date 05/02/23 Admitting Diagnosis Abdominal pain DS: Discharge Diagnosis Discharge Diagnosis (1) Diverticulitis: Code(s): K57.92 - Diverticulitis of intestine, part unspecified, without perforation or abscess without bleeding Status: Deleted (2) Hypertension: Code(s): I10 - Essential (primary) hypertension Status: Acute (3) Acute kidney injury: Code(s): N17.9 - Acute kidney failure, unspecified Status: Acute (4) ADRIANNA (obstructive sleep apnea): Code(s): G47.33 - Obstructive sleep apnea (adult) (pediatric) Status: Acute DS: Summary Hospital Course Reason for hospitalization: 73yo male with ADRIANNA and HTN here for abdominal pain. Please see H&P for details. Hospital Course: Patient presents with complaints of abdominal pain. He was already on oral abx on admission. CT scan showed a 3 cm pericolonic abscess and acute diverticulitis of the distal descending colon. He underwent successful ultrasound-guided left abdominal percutaneous abscess drain with removal of 5 mL of purulent material. Abscess culture results pending. General surgery was consulted. He was started on Zosyn 04/30. Changed to Levaquin/Flagyl. He feels much better today.? Drain was removed by General surgery 05/01.? Diet was started and advanced as tolerated. He also had KATHERINE. No baseline creatinine values to compare but creatinine was 1.7 on admission. With IV fluids, creatinine has trended down to 1.2. He overall did well and was able to be discharged home on 05/02 Status at Discharge Cognitive/behavioral status at discharge: stable Time Spent with Patient Time attestation: Total time spent providing and/or coordinating discharge services: 36 minutes Time spent: Greater than 30 minutes Exam Narrative: AF 97.7 149/82 77 18 98% ra Gen - NARD Chest - CTA bilaterally, nml RR CV - RRR S1/S2 Abd -soft. Minimal LLQ tenderness. Left abd dressing is clean, dry and intact. Ext - No pedal edema Psych - Nml mood and affect Skin - Warm and dry DS: Data Data Completed and Pending Labs on day of discharge: Labs from last 24 hours 05/02/23 06:07 WBC 7.4 RBC 3.97 L Hgb 12.4 L Hct 37.2 L MCV 93.7 MCH 31.2 MCHC 33.3 RDW 13.4 Plt Count 246 MPV 9.3 Immature Gran % (Auto) 0.4 Neut % (Auto) 67.7 Lymph % (Auto) 16.4 L [place] % (Auto) 13.5 H Eos % (Auto) 1.6 Baso % (Auto) 0.4 Lymph # (Auto) 1.21 [place] # (Auto) 1.0 H Eos # (Auto) 0.1 Baso # (Auto) 0.0 Abs Immat Gran (auto) 0.03 Absolute Neuts (auto) 5.0 Absolute Nucleated RBC 0.0 Nucleated RBC % 0.0 Sodium 136 L Potassium 3.5 Chloride 101 Carbon Dioxide 23 Anion Gap 12 BUN 21 H Creatinine 1.20 Estim Creat Clear Calc 58 Estimated GFR 60 Glucose 88 Calcium 9.5 Total Bilirubin 0.5 AST 22 ALT 18 Alkaline Phosphatase 67 Total Protein 7.0 Albumin 4.0 Preliminary micro results at discharge 04/30/23 14:45 Anaerobic Culture - Preliminary Abscess Discharge Plan Discharge Attending physician on discharge: Calvin Henderson Consulting providers: Rosalie English Discharging Clinician: Calvin Henderson Anticipated Discharge Date/Time: 05/02/23 11:31 Patient Disposition: Home, Self-Care Activity: may shower Diet: low fiber Discharge Instructions: Remove original drain dressing prior to discharge. ok to shower. no tub baths. ok to leave site open to air, unless draining. If there is drainage, wash site daily and as needed with soap and water, then cover with gauze dressing. Please complete your antibiotic course even if you are starting to feel well. Contact your doctor or call 911 and come to the Emergency Room if you have fevers, worsening abdominal pain or other worrisome symptoms. Avoid NSAIDs (ibuprofen, naproxen, Aleve). Tylenol is safe to take. Be aware that your medications have changed: -- STOP taking your Trazodon
== END 2023-05-02 12:02 | disposition home or self-care (01) | DRG 392 ==
LOC: ANHED 04-30 04:19 → ANH3MEDSUR 04-30 06:34
PROVIDERS: Nurse Practitioner Family; Student in an Organized Health Care Education/Training Program; Admitting Provider Internal Medicine; Emergency Provider Emergency Medicine; PCP Family Medicine; Visit Provider Internal Medicine
DX: K57.80 Diverticulitis of intestine, part unspecified, with perforation and abscess without bleeding (principal); N17.9 Acute kidney failure, unspecified; G47.33 Obstructive sleep apnea (adult) (pediatric); I10 Essential (primary) hypertension; K57.20 Diverticulitis of large intestine with perforation and abscess without bleeding; N40.0 Benign prostatic hyperplasia without lower urinary tract symptoms; Z96.653 Presence of artificial knee joint, bilateral; Z87.891 Personal history of nicotine dependence; Z99.89 Dependence on other enabling machines and devices; Z79.82 Long term (current) use of aspirin
CPT/HCPCS: 10160; 36415; 74177; 80053; 81003; 83690; 85025; 85610; 85730; 87070; 87075; 87077; 87186; 87205; 87493; 96361; 96365; 96375; 99285; A9270; C1729; G0378; J1170; J2543; J7030; Q9967

== ENCOUNTER 2023-06-05 02:01 | Day surgery (SDC) | payer MEDICARE, OTHER, SELFPAY ==
[2023-05-24 09:21] VITALS: BMI 44.6
--- NOTE | 2023-06-03 08:44 | SUR.PREOP ---
Patient called regarding upcoming procedure. Reviewed preop instructions, new appointment times, and procedure prep.
[2023-06-05 08:18] VITALS: BP 143/80; PULSE 83; RESP 20; TEMP 36.4; O2SAT 99
[2023-06-05] MEDS: LACTATED RINGERS 1,000 ML 150 ML IV CONT (08:23)
--- NOTE | 2023-06-05 09:03 | WPDANESEPPF ---
Anes - Initial Pre Proc Eval Procedure: Operation Date: 06/05/23 09:30 Proposed Procedures p Colonoscopy - Bernard Sheppard MD Date/Time: 06/05/23 09:03 Surgeon: Bernard Sheppard MD Pre Op Diagnosis: Diverticulitis Patient Data Age: 73 Gender: M Height: 1.78 m Weight: 93.9 kg Last Vital Signs Temp 97.6 F 06/05/23 08:18 Pulse 83 06/05/23 08:18 Resp 20 06/05/23 08:18 BP 143/80 H 06/05/23 08:18 Pulse Ox 99 06/05/23 08:18 O2 Del Method Room Air 06/05/23 08:18 Allergies Allergy/AdvReac Type Severity Reaction Status Date / Time No Known Allergies Allergy Verified 06/05/23 08:17 Home Medications Medication Instructions Recorded Confirmed Type amlodipine 5 mg tablet 5 mg PO DAILY 06/14/19 06/05/23 History aspirin 81 mg tablet,delayed 81 mg PO DAILY 06/14/19 06/05/23 History release (Adult Low Dose Aspirin) doxazosin 8 mg tablet 8 mg PO BID 06/14/19 06/05/23 History dutasteride 0.5 mg capsule 0.5 mg PO DAILY 06/14/19 06/05/23 History glucosamine sulf dipot 1 cap PO DAILY 06/14/19 06/05/23 History chlr,msm,chond 550 mg-C 30 mg-nadine 1 mg capsule (Glucosamine Chondroitin) rosuvastatin 20 mg tablet 20 mg PO DAILY 06/14/19 06/05/23 History Daily Multivitamin 1 tab-cap PO DAILY 04/30/23 06/05/23 History celecoxib 200 mg capsule 200 mg PO BID 04/30/23 06/05/23 History fenofibrate micronized 134 mg 134 mg PO DAILY 04/30/23 06/05/23 History capsule metoprolol succinate 50 mg 50 mg PO DAILY 04/30/23 06/05/23 History tablet,extended release 24 hr trazodone 100 mg tablet 100 mg PO HS 04/30/23 06/05/23 History triamterene 37.5 1 cap PO DAILY 04/30/23 06/05/23 History mg-hydrochlorothiazide 25 mg capsule Patient hx anesthesia problems: none Family hx anesthesia problems: none Results Review: All pre-operative results and documents have been reviewed as part of the pre-operative evaluation. [facility] Past Medical History Medical History BPH (benign prostatic hyperplasia) Bronchitis Hypertension ADRIANNA (obstructive sleep apnea) Surgical History Surgical History H/O colonoscopy History of knee replacement, total History of tonsillectomy Family History Family History Mother Breast cancer Father Diabetes mellitus Social History Social History Smoking packs per day: 2 Smoking cigarettes per day: 40.0 Years smoked: 20 Smoking pack-years: 40.00 Smoking status: Former smoker Alcohol intake: current Drinks per week: 4 Alcohol use details: Drinks 1-2 alcoholic beverages about 4 times per week Substance use: never Substance use type: does not use Do You Feel Safe in your Home?: Yes Lack of Transportation: No Lack of Food: Never True Current Housing: I Have Housing Concerned About Future Housing: No Difficulty Paying Gas/Electric Bills: No Difficulty Paying for Meds: No Currently Unemployed: No Education: Decline to Answer Difficulty w/ Childcare or Family Care: No Living arrangements: with family Spiritual care concerns: No Anes - Eval Final PreProcedure Day of Procedure 06/05/23 09:03 Patient weight: obese Heart: regular rate and rhythm Lungs: clear to auscultation Airway: Mallampati scale class II Neurological: alert and oriented Last oral intake: >/= 8 hours ASA classification: III Emergent: no Anesthetic plan: proceed Anesthesia type and monitoring: general GIVS and standard monitoring Results Review: All pre-operative results and documents have been reviewed as part of the pre-operative evaluation. Informed Consent: The patient's anesthetic plan and its attendant risks and benefits were discussed with the patient/family/POA. Questions were solicited and ans
--- NOTE | 2023-06-05 09:39 | PM.HPGS ---
History of Present Illness History of Present Illness Consent: Risks, benefits, and alternatives have been discussed and questions answered. Patient agrees to proceed with procedure. Chief complaint: Diverticulitis Narrative: Jf Cook is a 73 year old male with diverticulitis 1 month ago in descending that required IR drainage, asymptomatic now. He had previous diverticulitis ~ 3-4 times, last colonoscopy 2021 Review of Systems Constitutional: Constitutional: Denies headache(s) and Denies weakness Eyes: Eyes: Denies blurry vision ENT: Reports Normal hearing present, Denies headache(s) and Denies neck pain Cardiovascular: Cardiovascular: Denies chest pain and Denies dyspnea Respiratory: Respiratory: Denies dyspnea Gastrointestinal: Gastrointestinal: Reports no additional gastrointestinal complaints Genitourinary: Genitourinary: Denies dysuria Musculoskeletal: Musculoskeletal: Denies neck pain Integumentary/Breasts: Skin/Breast: Denies dry skin Neurologic: Reports Normal hearing present, Denies headache(s) and Denies weakness Psychiatric: Psychiatric: Denies anxiety Endocrine: Endocrine: Denies change in body appearance Hematologic/Lymphatic: Hematologic/Lymphatic: Denies easy bleeding Allergic/Immunologic: Allergic/Immunologic: Denies urticaria PMFSH Past Medical History Medical History (Updated 06/05/23 @ 09:40 by Bernard Sheppard MD) BPH (benign prostatic hyperplasia) Bronchitis History of diverticulitis of colon Hypertension ADRIANNA (obstructive sleep apnea) Surgical History Surgical History H/O colonoscopy History of knee replacement, total History of tonsillectomy Family History Family History Mother Breast cancer Father Diabetes mellitus Social History Social History Smoking packs per day: 2 Smoking cigarettes per day: 40.0 Years smoked: 20 Smoking pack-years: 40.00 Smoking status: Former smoker Alcohol intake: current Drinks per week: 4 Alcohol use details: Drinks 1-2 alcoholic beverages about 4 times per week Substance use: never Substance use type: does not use Do You Feel Safe in your Home?: Yes Lack of Transportation: No Lack of Food: Never True Current Housing: I Have Housing Concerned About Future Housing: No Difficulty Paying Gas/Electric Bills: No Difficulty Paying for Meds: No Currently Unemployed: No Education: Decline to Answer Difficulty w/ Childcare or Family Care: No Living arrangements: with family Spiritual care concerns: No Meds Home Medications and Allergies Home Medications Medication Instructions Recorded Confirmed Type amlodipine 5 mg tablet 5 mg PO DAILY 06/14/19 06/05/23 History aspirin 81 mg tablet,delayed 81 mg PO DAILY 06/14/19 06/05/23 History release (Adult Low Dose Aspirin) doxazosin 8 mg tablet 8 mg PO BID 06/14/19 06/05/23 History dutasteride 0.5 mg capsule 0.5 mg PO DAILY 06/14/19 06/05/23 History glucosamine sulf dipot 1 cap PO DAILY 06/14/19 06/05/23 History chlr,msm,chond 550 mg-C 30 mg-nadine 1 mg capsule (Glucosamine Chondroitin) rosuvastatin 20 mg tablet 20 mg PO DAILY 06/14/19 06/05/23 History Daily Multivitamin 1 tab-cap PO DAILY 04/30/23 06/05/23 History celecoxib 200 mg capsule 200 mg PO BID 04/30/23 06/05/23 History fenofibrate micronized 134 mg 134 mg PO DAILY 04/30/23 06/05/23 History capsule metoprolol succinate 50 mg 50 mg PO DAILY 04/30/23 06/05/23 History tablet,extended release 24 hr trazodone 100 mg tablet 100 mg PO HS 04/30/23 06/05/23 History triamterene 37.5 1 cap PO DAILY 04/30/23 06/05/23 History mg-hydrochlorothiazide 25 mg capsule Allergies Allergy/AdvReac Type Severity Reaction Status Date / Time No Known Allergies Allergy Verified 06/05/23 08:17 Sue
[2023-06-05 10:02] VITALS: BP 113/79; PULSE 86; RESP 21; O2SAT 99
[2023-06-05 10:12] VITALS: BP 116/79; PULSE 76; RESP 20; O2SAT 99
[2023-06-05 10:22] VITALS: BP 127/90; PULSE 76; RESP 20; O2SAT 99
== END 2023-06-05 10:33 | disposition home or self-care (01) ==
PROVIDERS: Referring Provider Surgery; Visit Provider Internal Medicine Gastroenterology
PROC: 0DJD8ZZ Inspection of Lower Intestinal Tract, Via Natural or Artificial Opening Endoscopic (ICD-10-PCS; CPT 45378; principal; 2023-06-05 09:30)
DX: Z09 Encounter for follow-up examination after completed treatment for conditions other than malignant neoplasm (principal); K57.30 Diverticulosis of large intestine without perforation or abscess without bleeding; K64.8 Other hemorrhoids; Z87.19 Personal history of other diseases of the digestive system; I10 Essential (primary) hypertension; G47.33 Obstructive sleep apnea (adult) (pediatric); N40.0 Benign prostatic hyperplasia without lower urinary tract symptoms; Z87.891 Personal history of nicotine dependence; E66.9 Obesity, unspecified; Z68.29 Body mass index [BMI] 29.0-29.9, adult; Z79.82 Long term (current) use of aspirin
CPT/HCPCS: 45378; J2704; J7120

== ENCOUNTER 2024-06-23 07:56 | Outpatient (CLI) | payer MEDICARE, OTHER, SELFPAY ==
--- OUTSIDE RECORDS SUMMARY | 2024-06-23 08:12 | XMS_ITS | Continuity of Care Document ---
Author Organization [facility] Address [address] [place] [address] Phone Care Team Providers Care Personal Caregiver Name Role Phone Tera Knox Unavailable Unavailable Advance Directives Directive Yes / No Effective Date File Name No Information Encounters Encounter Description Practice Location Reason(s) For Visit Diagnoses Date Provider Providers Copied on Encounter [facility], [id number] [place] [address] [address], [place], [place], [id number], [place] tel:[phone] [facility] No Information [address] , [address], [place], [address], [place]. tel:[phone] Family History Family Member Type Diagnosis Age At Onset No Information Payers Payer name Insurance type Covered green party ID Authoriza tion(s) No Information Social History Type Description Quantity Date Captured Comments Sex Male Smoking Status No Information Chief Complaint And Reason For Visit No Information Reason For Referral Reason For Referral No Information History Of Present Illness Encounter Date Complaint History Of Prese nt Illness No Information Functional Status Date Functional Assessmen t No Information Instructions Date Instruction Additional Infor mation No Information Assessments Type Assessment Date No Information Patient Care Teams Name Effective Dates (start - stop) Status Members No Information
--- OUTSIDE RECORDS SUMMARY | 2024-06-23 08:12 | XMS_ITS | Patient Health Record ---
Author Organization [facility] Address [address] [facility]. [address] [place] [address] Care Team Providers Care Retail Support Associate Name Role Phone Ernesto Davila MD Primary Care Provider Unavailab Thomas Edwards Unavailable [phone] Reason For Referral No Information Problems Problem Type SNOMED Code ICD Code Onset Dates Problem Status W/U Status Risk Notes Problem 128946322 Diverticulosis o f large intestine without perforation or abscess without bleeding (K57.30) Active confirmed Problem 919018785 Personal history of colonic polyps (Z86.010) Active confirmed Plan Of Treatment No Information Insurance Providers Payer Name Payer Address Payer Phone Subscriber Number Group Number Insured Name Patient Relationship to Insured Coverage Start Date Coverage End Date Medicare E2 [address] [address] [place] [address] [phone] [id number] Jf Cook Self - patient is the insured [facility] [employer] [address] [place] [address] [phone] [id number] Jf Cook Self - patient is the insured
--- OUTSIDE RECORDS SUMMARY | 2024-06-23 08:12 | XMS_ITS | Encounter Summary ---
Author Organization [facility] Address 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
--- OUTSIDE RECORDS SUMMARY | 2024-06-23 08:12 | XMS_ITS | Patient Health Summary ---
Author Organization [facility] Address [address] [place] [address] Care Team Providers Care Tank Crewmember Name Role Phone Jack Umana MD Unavailable Deniz Scales MD Primary Care Provider [phone] Note from [facility],non-owned Affiliates and Associated Physician Practices is amultiple site organization consisting of ambulatory clinics and hospital sitesin [place], [place], [place] and [place]. This disclosure is being madepursuant to the Care Everywhere program and may not contain all information available regarding this patient. Last updated 18.[facility] Allergies No known active allergies Medications * Be aware that medications may not be up to date on this document. Alwaysverify current medications with the patient. * dutasteride (AVODART) 0.5 MG capsule Take 1 (one) capsule by mouth once daily * doxazosin (CARDURA) 8 MG tablet Take 1 (one) tablet by mouth 2 times daily * amLODIPine (NORVASC) 5 MG tablet(Started 07/24/2020) Take 1 (one) tablet by mouth at bedtime * testosterone cypionate (DEPO-TESTOSTERONE) 200 MG/ML injection(Started 03/21/2021) Inject 1 mL into muscle Every 3 Weeks * metoprolol succinate XL 24hr (TOPROL XL) 50 MG tablet Take 1 (one) tablet by mouth once daily * traZODone (DESYREL) 50 MG tablet Take 1 (one) tablet by mouth at bedtime * rosuvastatin (CRESTOR) 10 MG tablet Take 2 (two) Half Tablet by mouth once daily * Multiple Vitamin (MULTIVITAMIN ADULT PO) Take 1 tablet by mouth once daily * Probiotic Product (PROBIOTIC-10 PO) Take 1 tablet by mouth once daily * fenofibrate (Lofibra) 160 MG tablet Take 1 (one) tablet by mouth once daily Take with largest meal of the day. * Glucosamine-Chondroitin (GLUCOSAMINE CHONDR COMPLEX PO) Take 1 tablet by mouth once daily * triamterene-hydroCHLOROthiazide (Dyazide) 37.5-25 MG capsule(Started 12/20/2022) Take 1 (one) capsule by mouth once daily * omeprazole (PriLOSEC) 20 MG capsule(Started 03/28/2023) Take 1 (one) capsule by mouth once daily for 42 days * polyethylene glycol 3350 (MiraLax) 17 g packet(Started 03/30/2023) Take 17 (seventeen) g by mouth once daily as needed for Constipation Reasons: Constipation * fenofibrate micronized (Lofibra) 134 MG capsule(Started 04/10/2023) * rosuvastatin (Crestor) 20 MG tablet(Started 04/10/2023) * traZODone (Desyrel) 100 MG tablet(Started 04/10/2023) * oxyCODONE, immediate release, (Roxicodone) 5 MG tablet(Started 04/26/2023) Take 1 (one) tablet by mouth every 6 hours as needed for Pain * amoxicillin (Amoxil) 500 MG capsule(Started 04/16/2023) PLEASE SEE ATTACHED FOR DETAILED DIRECTIONS * ipratropium (Atrovent) 0.06 % nasal spray(Started 03/25/2023) 2 spray(s), Nasal, bid, 1 each, 5, 5, in each nostril. Aim spray towards the ear on the same side.,Route to Pharmacy Electronically, [facility]/pharmacy #[id number], [id number], 177, cm, 03/21/23 10:46:00 CDT, Height, 104.33, kg, 03/21/23 10:46:00 CDT, Weight * levoFLOXacin (Levaquin) 750 MG tablet(Started 05/02/2023) Take 1 (one) tablet by mouth once daily * metroNIDAZOLE (Flagyl) 500 MG tablet(Started 05/02/2023) Take 1 (one) tablet by mouth every 8 hours * celecoxib (CeleBREX) 200 MG capsule(Started 03/27/2024) TAKE 1 CAPSULE TWICE A DAY 3 refills by 03/27/2025 Active Problems Problem Noted Date Diagnosed Date Arthritis of knee 04/16/2022 S/P left knee arthroscopy 05/01/2021 Tear of medial meniscus of left knee, current Primary osteoarthritis of right knee 08/31/2020 Immunizations * INFLUENZA VACCINE, HIGH-DOSE, QUADR. (FLUZONE HIGH-DOSE QUADRIVALENT; 65Y+), 0.7 ML (HD-IIV4)(Given 02/25/2020) Social History Tobacco Use Types Packs/Day Years Used Date Smoking Tobacco: Former Smokeless Tobacco: Never Tobacco Cessation:Counseling Given: Not Answered Comments:Quit 40yrs ago Alcohol Use Standard Drinks/Week Comments Yes 0 (1 standard drink = 0.6 oz pur e alcohol) 5 x week OASIS D0700: Social Isolation Answer Da te Recorded Frequency of experiencing loneliness or isolatio n Never 04/11/2023 OASIS A1250: Transportation Answer Date Recorded Lack of Transportation (Medical) No 04/11/2023 Lack of Transportation (Non-Medical) No 04/11/2023 Patient Unable or Declines to Respond No 04/11/2023 OASIS B1300: Health Literacy Answer Norbert e Recorded Frequency of needing help to read materials from doctor or pharmacy Never 04/11/2023 AUDIT-C Answer Date Recorded Q1: How often do you have a drink containing alc ohol? 2-3 times a week 04/18/2021 Q2: How many drinks containi ng alcohol do you have on a typical day when you are drinking? 1 or 2 04/18/2021 Q3: How often do you have si x or more drinks on one occasion? Never 04/18/2021 Overall Financial Resource Strain (CARDIA) Answe r Date Recorded How hard is it for you to pa y for the very basics like food, housing, medical care, and heating? Not hard at all 03/28/2023 PHQ-2 Answer Date Recorded Patient Health Questionnaire-2 Score 1 04/09/2023 [facility] [place] [facility] Occupat ional [facility] - Occupational Stress Questionnaire Answer Date Recorded Do you feel stress - tense, restless, nervous, or anxious, or unable to sleep at night because your mind is troubled all the time - these days? Not at all 03/28/2023 Hunger Vital Sign Answer Date Recorded Within the past 12 months, y ou worried that your food would run out before you got the money to buy more. Never true 03/28/20 23 Within the past 12 months, t he food you bought just didn't last and you didn't have money to get more. Never true 03/28/2023 PRAPARE - Transportation Answer Date Re corded In the past 12 months, has l ack of transportation kept you from medical appointments or from getting medications? No 03/28/2023 Lack of Transportation (Non-Medical) Not on file 03/28/2023 Housing Stability Vital Sign Answer Norbert e Recorded In the last 12 months, was t here a time when you were not able to pay the mortgage or rent on time? No 03/28/2023 In the last 12 months, how many places have you lived? 1 03/28/2023 In the last 12 months, was t here a time when you did not have a steady place to sleep or slept in a fdc (including now)? No 03/28/2023 Sex and Gender Information Value Date Recorded Sex Assigned at Male 07/10/2021 8:57 AM STRUCTURES TECHNICIAN Gender Identity Male 07/10/2021 8:57 AM STRUCTURES TECHNICIAN Sexual Orientation Not on file Last Filed Vital Signs Vital Sign Reading Time Taken Comments Blood Pressure 142/82 04/11/2023 12:37 PM STRUCTURES TECHNICIAN Pulse 67 04/11/2023 12:37 PM STRUCTURES TECHNICIAN Temperature 35.9 ??C (96.7 ??F) 04/11/2023 12:[address] Respiratory Rate 16 04/11/2023 12:37 PM STRUCTURES TECHNICIAN Oxygen Saturation 96% 04/11/2023 12:37 PM STRUCTURES TECHNICIAN Inhaled Oxygen Concentration - - Weight 103.9 kg (229 lb) 03/28/2023 6:58 AM CDT Height 177.8 cm (5' 10 ) 03/28/2023 6:58 AM CDT Body Mass Index 32.86 03/28/2023 6:58 AM CDT Medical Devices Implanted Type Area Train Station Server Device Identifier Shelf Expiration Date Model / Serial / Lot Cmnt Bone Djo Srg Cblt 40gm Hvisc Strl Implanted:Qty: 2 on 04/16/2022 by Jack Umana MD at [facility] Left: Knee [employer] 06/22/2023 600-15-000 / / [id number] Cmpnt Fem Kn Lt Cr Cmnt Prm Vngrd Intlk 67.5mm Implanted:Qty: 1 on 04/16/2022 by Jack Umana MD at [facility] Left: Knee [employer] 03/06/2032 [id number] / / [id number] Cmpnt Ptlr Std 31mm 3 Pg Kn Ser A Implanted:Qty: 1 on 04/16/2022 by Jack Umana MD at [facility] Left: Knee [employer] 02/27/2027 [id number] / / [id number] Tray Tib 79mm Kn Cocr I Beam Implanted:Qty: 1 on 04/16/2022 by Jack Umana MD at [facility] Left: Knee [employer] 01/16/2032 [id number] / / [id number] Brng [id number] Vngrd Arcm Kn Ant Stab Implanted:Qty: 1 on 04/16/2022 by Jack Umana MD at [facility] Left: Knee [employer] 02/06/2027 [id number] / / [id number] Tray Tib 79mm Kn Cocr I Beam Implanted:Qty: 1 on 03/28/2023 by Jack Umana MD at [facility] Right: Knee [employer] 01/25/2033 [id number] / / [id number] Brng [id number] Vngrd Arcm Kn Ant Stab Implanted:Qty: 1 on 03/28/2023 by Jack Umana MD at [facility] Right: Knee [employer] 01/08/2027 [id number] / / [id number] Cmnt Bone Plc R 40gm Grn Implanted:Qty: 1 on 03/28/2023 by Jack Umana MD at [facility] Right: Knee [employer] 05/26/2025 [id number] / / [id number] Cmnt Bone Plc R 40gm Grn Implanted:Qty: 1 on 03/28/2023 by Jack Umana MD at [facility] Right: Knee [employer] 07/24/2025 [id number] / / [id number] Cmpnt Fem Kn Rt Cr Cmnt Prm Vngrd Intlk Implanted:Qty: 1 on 03/28/2023 by Jack Umana MD at [facility] Right: Knee [employer] 02/19/2033 [id number] / / [id number] Cmpnt Ptlr Std 31mm 3 Pg Kn Ser A Implanted:Qty: 1 on 03/28/2023 by Jack Umana MD at [facility] Right: Knee [employer] 01/17/2028 [id number] / / [id number] Procedures * XR KNEE RIGHT 3VW(Performed 05/07/2023) Performed for Aftercare following right knee joint replacement surgery * OK TOTAL KNEE REPLACEMENT(Performed 03/28/2023) * EKG 12-LEAD(Performed 02/25/2023) Performed for Pre-op evaluation * COMPREHENSIVE METABOLIC PANEL(Performed 02/25/2023) Performed for Pre-op evaluation * CBC W AUTO DIFFERENTIAL(Performed 02/25/2023) Performed for Pre-op evaluation * XR KNEE LEFT 3VW(Performed 05/29/2022) Performed for Aftercare following left knee joint replacement surgery * VAS LEFT VENOUS DUPLEX LE(Performed 05/09/2022) Performed for Left leg pain, Aftercare following left knee joint replacement surgery * HOME CPAP/BIPAP FOR HOSP USE: NOCTURNAL 02(Performed 04/16/2022) * NEURAXIAL BLOCK(Performed 04/16/2022) * OK TOTAL KNEE REPLACEMENT(Performed 04/16/2022) * COMPREHENSIVE METABOLIC PANEL(Performed 03/16/2022) Performed for Preoperative examination * CBC W AUTO DIFFERENTIAL(Performed 03/16/2022) Performed for Preoperative examination * EKG 12-LEAD(Performed 03/16/2022) Performed for Preoperative examination * LARYNGEAL MASK AIRWAY(Performed 04/18/2021) * ARTHROSCOPY KNEE(Performed 04/18/2021) * BASIC METABOLIC PANEL (CALCIUM TOTAL)(Performed 04/18/2021) Performed for Pre-op evaluation * MRI KNEE LEFT WO CONTRAST(Performed 03/21/2021) Performed for Left knee pain, unspecified chronicity * XR KNEE BILAT 3VW(Performed 08/30/2020) Performed for Pain in both knees, unspecified chronicity Results * XR KNEE RIGHT 3VW (05/07/2023 12:06 PM STRUCTURES TECHNICIAN) Narrative [facility] [address] - 05/07/2023 12:06 PM STRUCTURES TECHNICIAN Please see progress note in Epic for results. Jack Umana MD DIAGNOSTIC IMAGING O RDERABLES Performing Organization Address City/[facility]/ZIP Co de Phone Number [facility] [address] * EKG 12-LEAD (02/25/2023 9:14 AM CDT) Only the most recent of2 resultswithin the time period is included. Ventricular Rate 65 BPM [facility] Atrial Rate 65 BPM [facility] P-R Interval 182 ms [facility] QRS Duration ms 82 ms [facility] Q-T Interval ms 398 ms [facility] QTC Calculation (Bezet) 413 ms [facility] Calculated P [place] 33 degrees [facility] Calculated R [place] 51 degrees [facility] Calculated T [place] 54 degrees [facility] Interpretation EKG Normal sinus rhythm Normal ECG When compared with ECG of 16-MAR-2022 08:19, No significant change was found Confirmed by MARITO MARTINI, LEXUS CARR ([id number]) on 02/25/2023 1:06:10 PM [facility] 02/25/2023 9:14 AM CDT 02/25/2023 1:06 PM CDT Neela Plaza DO ECG ORDERABLES [facility] * (ABNORMAL) CBC W AUTO DIFFERENTIAL (02/25/2023 9:02 AM CDT) Only the most recent of2 resultswithin the time period is included. WBC 4.7 4.4 - 10.7 x10E9/L 02/25/2023 9:15 AM CDT [facility] WBC Corrected 02/25/2023 9:15 AM CDT [facility] RBC 4.31 3.80 - 5.40 x10E12/L 02/25/2023 9:15 AM CDT [facility] Hemoglobin 13.9 12.0 - 17.6 gm/dL 02/25/2023 9:15 AM CDT [facility] Hematocrit 41.4 35.2 - 51.7 % 02/25/2023 9:15 AM CDT [facility] MCV 96.1 80.7 - 98.3 fl 02/25/2023 9:15 AM CDT [facility] MCH 32.3 26.7 - 34.0 pg 02/25/2023 9:15 AM CDT [facility] MCHC 33.6 30.8 - 35.9 gm/dL 02/25/2023 9:15 AM CDT [facility] Platelet Count 159 153 - 416 x10E9/L 02/25/2023 9:15 AM CDT [facility] RDW-CV 13.9 12.1 - 14.9 % 02/25/2023 9:15 AM CDT [facility] MPV 9.6 9.4 - 12.9 fl 02/25/2023 9:15 AM CDT [facility] Neutrophils % 61.3 44.0 - 73.0 % 02/25/2023 9:15 AM CDT [facility] Lymphocytes % 21.9 20.0 - 43.0 % 02/25/2023 9:15 AM CDT [facility] Monocytes % 14.3(H) 5.0 - 13.0 % 02/25/2023 9:15 AM CDT [facility] Eosinophils % 1.7 0.0 - 6.0 % 02/25/2023 9:15 AM CDT [facility] Basophils % 0.6 0.0 - 2.0 % 02/25/2023 9:15 AM CDT [facility] Immature Granulocytes 0.2 0 - 1 % 02/25/2023 9:15 AM CDT [facility] Neutrophil Absolute 2.90 2.01 - 7.14 x10E9/L 02/25/2023 9:15 AM CDT [facility] Lymphocytes Absolute 1.04(L) 1.07 - 3.94 x10E9/L 02/25/2023 9:15 AM CDT [facility] Monocytes Absolute 0.68 0.26 - 1.07 x10E9/L 02/25/2023 9:15 AM CDT [facility] Eosinophils Absolute 0.08 0 - 0.47 x10E9/L 02/25/2023 9:15 AM CDT [facility] Basophils Absolute 0.03 0 - 0.08 x10E9/L 02/25/2023 9:15 AM CDT [facility] Immature Granulocytes Absolute 0.01 0.00 - 0.06 x10E9/L 02/25/2023 9:15 AM CDT [facility] nRBC Auto 0 /100 WBC 02/25/2023 9:15 AM CDT [facility] Blood BLOOD SPECIMEN / Unknown Venipuncture / Unknown 02/25/2023 9:02 AM CDT 02/25/2023 9:09 AM CDT Jag Márquez [employer] [facility] - HEMATOLOGY ORDERABLES [facility] [address] [place] [address] * (ABNORMAL) COMPREHENSIVE METABOLIC PANEL (02/25/2023 9:02 AM CDT) Only the most recent of2 resultswithin the time period is included. Glucose 100 70 - 105 mg/dL 02/25/2023 9:29 AM CDT [facility] Sodium 141 136 - 145 mmol/L 02/25/2023 9:29 AM CDT [facility] Potassium 4.2 3.5 - 5.1 mmol/L 02/25/2023 9:29 AM CDT [facility] Chloride 107 98 - 107 mmol/L 02/25/2023 9:29 AM CDT [facility] CO2 24 22 - 29 mmol/L 02/25/2023 9:29 AM CDT [facility] Calcium 9.7 8.4 - 10.4 mg/dL 02/25/2023 9:29 AM CDT [facility] Anion Gap 10 6 - 16 mmol/L 02/25/2023 9:29 AM CDT [facility] BUN 15 7 - 26 mg/dL 02/25/2023 9:29 AM CDT [facility] Creatinine 0.98 0.72 - 1.25 mg/dL 02/25/2023 9:29 AM CDT [facility] Alkaline Phosphatase 47 40 - 150 U/L 02/25/2023 9:29 AM CDT [facility] ALT 24 0 - 55 U/L 02/25/2023 9:29 AM CDT [facility] AST 22 5 - 34 U/L 02/25/2023 9:29 AM CDT [facility] Protein Total 6.7 6.4 - 8.3 gm/dL 02/25/2023 9:29 AM CDT [facility] Albumin 3.8 3.4 - 5.0 gm/dL 02/25/2023 9:29 AM CDT [facility] Bilirubin Total 0.5 0.2 - 1.2 mg/dL 02/25/2023 9:29 AM T [facility] eGFR by CKD-EPI 82(L) >=90 mL/min/1.7 3 m2 02/25/2023 9:29 AM CDT [facility] Blood BLOOD SPECIMEN / Unknown Venipuncture / Unknown 02/25/2023 9:02 AM CDT 02/25/2023 9:09 AM CDT Jag Márquez [employer] [facility] - CHEMISTRY ORDERABLES Performing Organization Address City/State/[facility] Co de Phone Number [facility] [address] [place] [address] * XR KNEE LEFT 3VW (05/29/2022 11:13 AM STRUCTURES TECHNICIAN) Anatomical Region Laterality Modality Lower Extremity Computed Radiogr aphy Narrative 05/29/2022 11:13 AM STRUCTURES TECHNICIAN Lillian George, RT(R) ? 06/11/2022 11:29 AM See progress notes for results Yaw Macdonald [employer] DIAGNOSTI C IMAGING ORDERABLES * VAS LEFT VENOUS DUPLEX LE (05/09/2022) Anatomical Region Laterality Modality Lower Extremity, Upper Extremity Other Jack Umana MD VASCULAR LAB ORDERAB LES * Neuraxial Block (04/16/2022 12:30 PM STRUCTURES TECHNICIAN) Narrative Tatiana Bowie APRN-CRNA - 04/16/2022 12:30 PM STRUCTURES TECHNICIAN Tatiana Bowie APRN-CRNA ? 04/16/2022 12:33 PM Neuraxial Block Note ?? Pre-Procedure: ?? Procedure Name: ??Neuraxial Block Patient Location: ??OR Indications: ??surgical anesthesia Pre-Anesthetic Checklist: ??Patient identified, IV Checked, Risks and benefits discussed, Surgical consent verified, Monitors and equipment, Site examined, Pre-op evaluation done, Time-out performed, Informed consent obtained, Questions answered/anesthesia questions answered and Allergies reviewed Anticoagulation/ Anti-thrombosis status confirmed? ??Yes Supplemental O2: ??face mask Monitors: ??BP, continuous pluse ox and End tidal CO2 Patient Condition: ??sedated, meaningful contact maintained throughout procedure Patient Sedated? ??Yes ? Sedation Type: ??moderate Procedure: ?? Block Type: ??Spinal Prep: ??Betadine Sterile Field: ??mask, cap/hat, sterile established and sterile gloves Approach: ??midline Skin was localized? ??Yes Spinal Block: ?? Needle Type: ??spinal needle Needle Gauge: ??22 Needle Length: ??90 mm Placement Site: ??L3-4 Number of Attempts: ??1 CSF: ??free flow, aspiration before injection Local anesthetics used? ??Yes Degree of difficulty: ??none Procedure Tolerance: ??tolerated well ?? performed while the patient was sedated Sensory Level: ??thoracic lumbo Motor Blockade: ??Yes Position post procedure: ??supine (kept sitting one minute) Vital Signs: ??Vital signs monitored and stable throughout. ??See anesthesia record for details. Staff: ?? Anesthesia Provider: ??Tatiana Bowie APRN-CRNA ?? - ?? performed the procedure Jair Peterson MD GENERAL ANESTHESIA O RDERABLES * LARYNGEAL MASK AIRWAY (04/18/2021 8:47 AM STRUCTURES TECHNICIAN) Narrative Anel Pleitez APRN-CRNA - 04/18/2021 8:47 AM STRUCTURES TECHNICIAN Anel Pleitez APRN-CRNA ? 04/18/2021 ??8:48 AM LMA Placement Procedure/LDA Note: Patient Location: OR. LMA Insertion Date/Time: ??04/18/2021 8:31 AM Procedure: LMA. Pretreatment: 100% O2 Induction: standard IV Patient position: sniffing. Mask Ventilation: not attempted Type: ??gel LMA Size: ??4 Number of Attempts: 1. Placement verified by: bilateral breath sounds, chest auscultation and CO2 monitor Dentition unchanged? ??Yes Procedure Start Time: 04/18/2021 8:31 AM. Staff Section ? Anesthesia Provider: Anel Pleitez APRN-CRNA, Performed the procedure Additional Comments: LMA placed by Rosalinda PRICE who was present throughout duration of case.. Bruce Nina DO GENERAL ANESTHESIA O RDERABLES * (ABNORMAL) BASIC METABOLIC PANEL (CALCIUM TOTAL) (04/18/2021 7:21 AM STRUCTURES TECHNICIAN) Glucose 97 70 - 105 mg/dL 04/18/2021 7:40 AM STRUCTURES TECHNICIAN [facility] Sodium 140 136 - 145 mmol/L 04/18/2021 7:40 AM STRUCTURES TECHNICIAN [facility] Potassium 4.2 3.5 - 5.1 mmol/L 04/18/2021 7:40 AM STRUCTURES TECHNICIAN [facility] Chloride 107 98 - 107 mmol/L 04/18/2021 7:40 AM STRUCTURES TECHNICIAN [facility] CO2 22(L) 23 - 31 mmol/L 04/18/2021 7:40 AM STRUCTURES TECHNICIAN [facility] Calcium 9.7 8.4 - 10.4 mg/dL 04/18/2021 7:40 AM STRUCTURES TECHNICIAN [facility] Anion Gap 11 8 - 18 mmol/L 04/18/2021 7:40 AM STRUCTURES TECHNICIAN [facility] BUN 15 8.4 - 25.7 mg/dL 04/18/2021 7:40 AM STRUCTURES TECHNICIAN [facility] Creatinine 0.90 0.72 - 1.25 mg/dL 04/18/2021 7:40 AM STRUCTURES TECHNICIAN [facility] eGFR by MDRD >60 mL/min/1.7 3m2 04/18/2021 7:40 AM STRUCTURES TECHNICIAN [facility] eGFR by MDRD >60 mL/min/1.7 3m2 04/18/2021 7:40 AM STRUCTURES TECHNICIAN [facility] Blood BLOOD SPECIMEN / Unknown Venipuncture / Unknown 04/18/2021 7:21 AM STRUCTURES TECHNICIAN 04/18/2021 7:26 AM STRUCTURES TECHNICIAN Neela Patrick Plaza DO LAB - CHEMISTRY SHAHANA GARCIA [facility] [address] [place] [address] * MRI KNEE LEFT WO CONTRAST (03/21/2021 4:02 PM CDT) Anatomical Region Laterality Modality Lower Extremity Magnetic Resonan ce 03/21/2021 6:50 PM CDT Impressions 03/21/2021 7:01 PM CDT 1. 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 2. ??Nondisplaced horizontal undersurface tear posterior horn of the medial meniscus. 3. ??Joint effusion with popliteal cysts. *Reading Radiologist: Zuhair Bang on 03/21/2021 at 7:01 PM Narrative 03/21/2021 7:01 PM CDT MRI left knee, noncontrast DATE: 03/21/2021. INDICATION: Knee pain. TECHNIQUE: Multiplanar, multisequence nonenhanced left knee MRI. COMPARISONS: Plain films from 08/30/2020. FINDINGS: There is significant cartilage loss in the medial compartment of the knee with associated marrow signal changes in the medial femoral condyle and tibial plateau. ??A small joint effusion is also present. There is a subtle horizontal surface tear through the posterior horn the medial meniscus extending to the undersurface only. ??No meniscal displacement. The lateral menisci are preserved and the cartilage is preserved the lateral compartment. ??In the patella there is localized cartilage thinning along the medial surface but the midline and lateral surface is preserved. The cruciate and collateral ligaments are intact. ??There is a focal subchondral degenerative cyst in the medial tibial plateau near the collateral ligament. ??However the collateral ligament remains intact. The distal quadriceps tendon and patellar ligament remain intact. Musculature around the knee is unremarkable. ??However there are several popliteal cysts largest measuring 1.2 x 0.4 x 1.9 cm. Procedure Note Zuhair Bang MD - 03/21/2021 MRI left knee, noncontrast DATE: 03/21/2021. INDICATION: Knee pain. TECHNIQUE: Multiplanar, multisequence nonenhanced left knee MRI. COMPARISONS: Plain films from 08/30/2020. FINDINGS: There is significant cartilage loss in the medial compartment of the knee with associated marrow signal changes in the medial femoral condyle and tibial plateau. A small joint effusion is also present. There is a subtle horizontal surface tear through the posterior horn the medial meniscus extending to the undersurface only. No meniscal displacement. The lateral menisci are preserved and the cartilage is preserved the lateral compartment. In the patella there is localized cartilage thinning along the medial surface but the midline and lateral surface is preserved. The cruciate and collateral ligaments are intact. There is a focal subchondral degenerative cyst in the medial tibial plateau near the collateral ligament. However the collateral ligament remains intact. The distal quadriceps tendon and patellar ligament remain intact. Musculature around the knee is unremarkable. However there are several popliteal cysts largest measuring 1.2 x 0.4 x 1.9 cm. IMPRESSION 1. 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 2. Nondisplaced horizontal undersurface tear posterior horn of the medial meniscus. 3. Joint effusion with popliteal cysts. *Reading Radiologist: Zuhair Bang on 03/21/2021 at 7:01 PM Kati Rubi PA-C MR ORDERABLES * XR KNEE BILAT 3VW (08/30/2020 3:17 PM CDT) Anatomical Region Laterality Modality Lower Extremity Computed Radiogr aphy Narrative 08/30/2020 3:18 PM CDT Lillian George RT(R) ? 09/08/2020 ??5:02 PM See progress notes for results Jack Umana MD DIAGNOSTIC IMAGING O RDERABLES Care Teams Tank Crewmember Relationship Specialty Start Date End Date Deniz Scales MD [address] [place] [address] PCP - General Family Medicine 02/25/23 [place] [address] [address] Surgeon Orthopedic Surgery 03/17/21
--- OUTSIDE RECORDS SUMMARY | 2024-06-23 08:12 | XMS_ITS | Encounter Summary ---
Author Organization [facility] Address [address] [facility] [place] [address] Care Team Providers Care Campus Interviews Intern Name Role Phone Ernesto Davila MD Primary Care Provider [phone] Jack Umana MD Unavailable [phone] Deniz Scales MD Primary Care Provider [phone] Encounter Details Date Type Department Care Team (Late st Contact Info) Description 05/10/2022 [facility] Outpatient Visit [facility] [id number] [place] [id number] [place] [address] [address] Social History Tobacco Use Types Packs/Day Years Used Date Smoking Tobacco: Former Smokeless Tobacco: Never Comments:Quit 40yrs ago Alcohol Use Standard Drinks/Week Comments Yes 0 (1 standard drink = 0.6 oz pur e alcohol) socially AUDIT-C Answer Date Recorded Q1: How often do you have a drink containing alc ohol? 2-3 times a week 04/18/2021 Q2: How many drinks containi ng alcohol do you have on a typical day when you are drinking? 1 or 2 04/18/2021 Q3: How often do you have si x or more drinks on one occasion? Never 04/18/2021 Hunger Vital Sign Answer Date Recorded Within the past 12 months, y ou worried that your food would run out before you got the money to buy more. Never true 04/16/20 22 Within the past 12 months, t he food you bought just didn't last and you didn't have money to get more. Never true 04/16/2022 Sex and Gender Information Value Date Recorded Sex Assigned at Male 07/10/2021 8:57 AM DENSITOMETRIST Gender Identity Male 07/10/2021 8:57 AM DENSITOMETRIST Sexual Orientation Not on file documented as of this encounter Functional Status Functional Status Response Date of Assess ment Is person deaf or have serious hearing difficult y? No 04/16/2022 Is person blind or have serious difficulty seein g? No 04/16/2022 Does person have serious dif ficulty walking/climbing stairs? No 04/16/2022 Does person have difficulty dressing/bathing? No 04/16/2022 Does person have difficulty doing errands alone? No 04/16/2022 Cognitive Status Response Date of Assessm ent Does person have difficulty concentrating/remembering/making decisions? No 04/16/2022 documented as of this encounter Plan of Treatment Not on file documented as of this encounter Visit Diagnoses Not on filedocumented in this encounter Care Teams Campus Interviews Intern Relationship Specialty Start Date End Date Ernesto Davila MD [address] [place] [address] PCP - General Family Medicine 08/05/20 02/24/23 Deniz Scales MD [address] [place] [address] PCP - General Family Medicine 02/25/23 [place] [address] [place] [address] Surgeon Orthopedic Surgery 03/17/21 documented as of this encounter
--- OUTSIDE RECORDS SUMMARY | 2024-06-23 08:12 | XMS_ITS | Clinical Summary ---
Author Organization [facility] Address [address] [facility] [place] [address] Care Team Providers Care Meal Packer Name Role Phone Jack Umana MD Unavailable Deniz Scales MD Primary Care Provider [phone] Source Comments [facility],non-owned Affiliates and Associated Physician Practices is amultiple site organization consisting of ambulatory clinics and hospital sitesin [place], [place], [place] and [place]. This disclosure is being madepursuant to the Care Everywhere program and may not contain all information available regarding this patient. Last updated 18.[facility] Allergies No known active allergies Medications * Be aware that medications may not be up to date on this document. Alwaysverify current medications with the patient. Medication Sig Dispensed Refills Start Date End Date Status dutasteride (AVODART) 0.5 MG capsule Take 1 (one) capsule by mouth once daily Active doxazosin (CARDURA) 8 MG tablet Take 1 (one) tablet by mouth 2 times daily Active amLODIPine (NORVASC) 5 MG tablet Take 1 (one) tablet by mouth at bedtime 07/24/2020 Active testosterone cypionate (DEPO-TESTOSTERONE) 200 MG/ML injection Inject 1 mL into muscle Every 3 Weeks 03/21/2021 Active metoprolol succinate XL 24hr (TOPROL XL) 50 MG tablet Take 1 (one) tablet by mouth once daily Active traZODone (DESYREL) 50 MG tablet Take 1 (one) tablet by mouth at bedtime Active rosuvastatin (CRESTOR) 10 MG tablet Take 2 (two) Half Tablet by mouth once daily Active Multiple Vitamin (MULTIVITAMIN ADULT PO) Take 1 tablet by mouth once daily Active Probiotic Product (PROBIOTIC-10 PO) Take 1 tablet by mouth once daily Active fenofibrate (Lofibra) 160 MG tablet Take 1 (one) tablet by mouth once daily Take with largest meal of the day. Active Glucosamine-Chondro itin (GLUCOSAMINE CHONDR COMPLEX PO) Take 1 tablet by mouth once daily Active triamterene-hydroCH LOROthiazide (Dyazide) 37.5-25 MG capsule Take 1 (one) capsule by mouth once daily 12/20/2022 Active omeprazole (PriLOSEC) 20 MG capsule Take 1 (one) capsule by mouth once daily for 42 days 42 capsule 03/28/2023 Active polyethylene glycol 3350 (MiraLax) 17 g packetIndications:C onstipation Take 17 (seventeen) g by mouth once daily as needed for Constipation Reasons: Constipation 03/30/2023 Active fenofibrate micronized (Lofibra) 134 MG capsule 04/10/2023 Active rosuvastatin (Crestor) 20 MG tablet 04/10/2023 Active traZODone (Desyrel) 100 MG tablet 04/10/2023 Active oxyCODONE, immediate release, (Roxicodone) 5 MG tabletIndications:A cute postoperative pain Take 1 (one) tablet by mouth every 6 hours as needed for Pain 12 tablet 04/26/2023 Active Additional Information Patient not taking.Reported on 05/07/2023 amoxicillin (Amoxil) 500 MG capsule PLEASE SEE ATTACHED FOR DETAILED DIRECTIONS 04/16/2023 Active ipratropium (Atrovent) 0.06 % nasal spray 2 spray(s), Nasal, bid, 1 each, 5, 5, in each nostril. Aim spray towards the ear on the same side., Route to Pharmacy Electronically, [facility]/pharmacy #[id number], [id number] [id number] , 177, cm, 03/21/23 10:46:00 CDT, Height, 104.33, kg, 03/21/23 10:46:00 CDT, Weight 03/25/2023 Active levoFLOXacin (Levaquin) 750 MG tablet Take 1 (one) tablet by mouth once daily 05/02/2023 Active metroNIDAZOLE (Flagyl) 500 MG tablet Take 1 (one) tablet by mouth every 8 hours 05/02/2023 Active celecoxib (CeleBREX) 200 MG capsuleIndications: pain TAKE 1 CAPSULE TWICE A DAY 180 capsule 3 03/27/2024 Active Active Problems Problem Noted Date Diagnosed Date Arthritis of knee 04/16/2022 S/P left knee arthroscopy 05/01/2021 Tear of medial meniscus of left knee, current Primary osteoarthritis of right knee 08/31/2020 Encounters Date Type Department Care Team Description 03/26/2024 Refill [facility] [address] [place] [address], [address] [place] [id number] Chucky Mckeon PA-C Refill Request from Last 3 Months Immunizations Name Administration Dates Next Due INFLUENZA VACCINE, HIGH-DOSE , QUADR. (FLUZONE HIGH-DOSE QUADRIVALENT; 65Y+), 0.7 ML (HD-IIV4) 02/25/2020 Social History Tobacco Use Types Packs/Day Years [...] Recorded Patient Health Questionnaire-2 Score 1 04/09/2023 [facility] [place] of Occupat ional Health - Occupational Stress [...] place to sleep or slept in a [place] facility (including now)? No 03/28/2023 Sex and Gender Information Value Date Recorded Sex Assigned at Male 07/10/2021 8:57 AM COOKER PROCESS CHEESE Gender Identity Male 07/10/2021 8:57 AM COOKER PROCESS CHEESE Sexual Orientation Not on file Last Filed Vital Signs Vital Sign Reading Time Taken Comments Blood Pressure 142/82 04/11/2023 12:37 PM COOKER PROCESS CHEESE Pulse 67 04/11/2023 12:37 PM COOKER PROCESS CHEESE Temperature 35.9 ??C (96.7 ??F) 04/11/2023 12:[address] Respiratory Rate 16 04/11/2023 12:37 PM COOKER PROCESS CHEESE Oxygen Saturation 96% 04/11/2023 12:37 PM COOKER PROCESS CHEESE Inhaled Oxygen Concentration - - Weight 103.9 kg (229 lb) 03/28/2023 6:58 AM CDT Height 177.8 cm (5' 10 ) 03/28/2023 6:58 AM CDT Body Mass Index 32.86 03/28/2023 6:58 AM CDT Plan of Treatment Health Maintenance Due Date Last Done Comments COLOGUARD (AGES 45-75) - COLON CA SCREENING 1951 COLON MONITORING 1951 COLONOSCOPY - COLON CA SCREENING 1951 CT COLONOGRAPHY - COLON CA SCREENING 1950 Colorectal Cancer Screening 1950 FIT - COLON CA SCREENING 1950 FLEX SIG - COLON CA SCREENING 1950 MEDICARE AWV ? 12 MONTHS 1950 HEPATITIS C SCREENING 01/10/1969 DTAP/TDAP/TD VACCINES (1 - Tdap) 1970 PNEUMOCOCCAL VACCINE 50+ (1 of 1 - PCV) 2001 ZOSTER VACCINE (1 of 2) 2001 AAA SCREENING 01/16/2016 COVID-19 VACCINE ( - season) 2024 02/19/2021, 07/31/2020, 07/02/2020 INFLUENZA VACCINE (#1) 2024 , 02/25/2020, 02/20/2019, Additional history exists DEPRESSION SCREENING 05/27/2024 04/16/2023 Respiratory Syncytial Virus (RSV) Vaccine Pt: or over 60 yrs (1 - 1-dose 75+ series) 2026 SCREENING FOR DIABETES 02/25/2026 3, 03/16/2022, 04/18/2021 HEPATITIS B VACCINE Aged Out No longe r eligible based on patient's age to complete this topic HIB VACCINE Aged Out No longer eligi ble based on patient's age to complete this topic HPV VACCINE Aged Out No longer eligi ble based on patient's age to complete this topic MENINGOCOCCAL (Group B) VACCINE Aged Out No longer eligible based on patient's age to complete this topic MENINGOCOCCAL VACCINE Aged Out No brenda rachid eligible based on patient's age to complete this topic Medical Devices Implanted Type Area Oxidized Finish Plater Device Identifier Shelf Expiration Date Model / Serial / Lot Cmnt Bone Djo Srg Cblt 40gm Hvisc Strl Implanted:Qty: 2 on 04/16/2022 by Jack Umana MD at [facility] Left: Knee [employer] 06/22/2023 [id number] / / [id number] Cmpnt Fem Kn Lt Cr Cmnt Prm Vngrd Intlk 67.5mm Implanted:Qty: 1 on 04/16/2022 by Jack Umana MD at [facility] Left: Knee [employer] 03/06/2032 [id number] / / [id number] Cmpnt Ptlr Std 31mm 3 Pg Kn Ser A Implanted:Qty: 1 on 04/16/2022 by Jack Umana MD at [facility] Left: Knee [employer] 02/27/2027 [id number] / / [id number] Tray Tib 79mm Kn Cocr I Beam Implanted:Qty: 1 on 04/16/2022 by Jack Umana MD at [facility] Left: Knee [employer] 01/16/2032 [id number] / / [id number] Brng [id number] Vngrd Arcm Kn Ant Stab Implanted:Qty: 1 on 04/16/2022 by Jack Umana MD at [facility] Left: Knee [employer] 02/06/2027 [id number] / / [id number] Tray Tib 79mm Kn Cocr I Beam Implanted:Qty: 1 on 03/28/2023 by Jack Umana MD at [facility] Right: Knee [employer] 01/25/2033 [id number] / / [id number] Brng 62tdh10en Vngrd Arcm Kn Ant Stab Implanted:Qty: 1 on 03/28/2023 by Jack Umana MD at [facility] Right: Knee [employer] 01/08/2027 [id number] / / [id number] Cmnt Bone Plc R 40gm Grn Implanted:Qty: 1 on 03/28/2023 by Jack Umana MD at [facility] Right: Knee [employer] 05/26/2025 [id number] / / [id number] Cmnt Bone Plc R 40gm Grn Implanted:Qty: 1 on 03/28/2023 by Jack Umana MD at [facility] Right: Knee [employer] 07/24/2025 [id number] / / [id number] Cmpnt Fem Kn Rt Cr Cmnt Prm Vngrd Intlk Implanted:Qty: 1 on 03/28/2023 by Jack Umana MD at [facility] Right: Knee [employer] 02/19/2033 [id number] / / [id number] Cmpnt Ptlr Std 31mm 3 Pg Kn Ser A Implanted:Qty: 1 on 03/28/2023 by Jack Umana MD at [facility] Right: Knee [employer] 01/17/2028 [id number] / / [id number] Procedures Procedure Name Priority Date/Time Associated Diagnosis Comments COMPREHENSIVE METABOLIC PANEL Routine 02/25/2023 9:02 AM CDT Pre-op evaluation from Last 3 Months or Most Recently Relevant to Health Maintenance Results * (ABNORMAL) COMPREHENSIVE METABOLIC PANEL (02/25/2023 9:02 AM CDT) Glucose 100 70 - 105 mg/dL 02/25/2023 9:29 AM CDT [facility] Sodium 141 136 - 145 mmol/L 02/25/2023 9:29 AM CDT [facility] Potassium 4.2 3.5 - 5.1 mmol/L 02/25/2023 9:29 AM CDT [facility] Chloride 107 98 - 107 mmol/L 02/25/2023 9:29 AM CDT [facility] CO2 24 22 - 29 mmol/L 02/25/2023 9:29 AM CDT [facility] Calcium 9.7 8.4 - 10.4 mg/dL 02/25/2023 9:29 AM CDT [facility] Anion Gap 10 6 - 16 mmol/L 02/25/2023 9:29 AM CDT [facility] BUN 15 7 - 26 mg/dL 02/25/2023 9:29 AM CDT [facility] Creatinine 0.98 0.72 - 1.25 mg/dL 02/25/2023 9:29 AM CDT [facility] Alkaline Phosphatase 47 40 - 150 U/L 02/25/2023 9:29 AM CDT [facility] ALT 24 0 - 55 U/L 02/25/2023 9:29 AM CDT [facility] AST 22 5 - 34 U/L 02/25/2023 9:29 AM CDT [facility] Protein Total 6.7 6.4 - 8.3 gm/dL 02/25/2023 9:29 AM CDT [facility] Albumin 3.8 3.4 - 5.0 gm/dL 02/25/2023 9:29 AM CDT [facility] Bilirubin Total 0.5 0.2 - 1.2 mg/dL 02/25/2023 9:29 AM CDT [facility] eGFR by CKD-EPI 82(L) >=90 mL/min/1.7 3 m2 02/25/2023 9:29 AM CDT [facility] Blood BLOOD SPECIMEN / Unknown Venipuncture / Unknown 02/25/2023 9:02 AM CDT 02/25/2023 9:09 AM CDT Jag Márquez ENTRY LEVEL CHEMIST-GENETICS NURSE LAB - CHEMISTRY ORDERABLES [facility] [id number] [place] [id number] from Last 3 Months or Most Recently Relevant to Health Maintenance Advance Directives Documents on File Type Date Recorded Patient Low Voltage Electrician Expl anation Adv Directive/Living Will/POA 04/01/2023 9:15 PM * Full Code (Latest Code Status on File) Date Activated Date Inactivated Comments 03/28/2023 11:05 AM 03/29/2023 2:16 PM * Full Code Date Activated Date Inactivated Comments 04/16/2022 2:36 PM 04/17/2022 4:49 PM Care Teams Meal Packer Relationship Specialty Start Date End Date Deniz Scales MD [facility] [place] [address] PCP - General Family Medicine 02/25/23 [place] [address] [address] Surgeon Orthopedic Surgery 03/17/21
--- OUTSIDE RECORDS SUMMARY | 2024-06-23 08:12 | XMS_ITS | Clinical Summary ---
Author Organization [facility] Address [address] [facility] Attn: Epic Prelude ADT JEYSON RYANCRESENCIO [address] Care Team Providers Care Vortex Operator Name Role Phone Unavailable Primary Care Provider Unavailabl e Social History Tobacco Use Types Packs/Day Years Used Date Smoking Tobacco: Never Assessed Sex and Gender Information Value Date Recorded Sex Assigned at Not on file Legal Sex Male 4:15 AM HEAD CHARRER Gender Identity Not on file Sexual Orientation Not on file Plan of Treatment Health Maintenance Due Date Last Done Comments DTAP/TDAP/TD VACCINES (1 - Tdap) 1970 COLORECTAL SCREENING 01/16/1996 Colorectal Cancer Screening 01/16/1996 FIT-DNA Q 3 years 01/16/1996 FIT/FOBT Q 1 year 01/16/1996 Flex Sig/CT Colonography Q 5 years 01/16/1996 PNEUMOCOCCAL VACCINE 65+ YEARS (1 of 1 - PCV) 01/16/20 ZOSTER VACCINE (1 of 2) 2001 INFLUENZA VACCINE (#1) 2023 RSV VACCINE (60+ or ) (1 - 1-dose 75+ series) 2026
--- OUTSIDE RECORDS SUMMARY | 2024-06-23 08:12 | XMS_ITS | Encounter Summary ---
Author Organization [facility] Address [address] [place] [address] Care Team Providers Care Lobster Catcher Name Role Phone Unavailable Primary Care Provider Unavailabl e Encounter Details Date Type Department Care Team (Late st Contact Info) Description 08/31/1999 Outpatient Historical [facility] Jesus Church MD Social History Tobacco Use Types Packs/Day Years Used Date Smoking Tobacco: Never Assessed Sex and Gender Information Value Date Recorded Sex Assigned at Not on file Legal Sex Male 4:15 AM MUSICAL THERAPIST Gender Identity Not on file Sexual Orientation Not on file documented as of this encounter Plan of Treatment Not on file documented as of this encounter Visit Diagnoses Not on filedocumented in this encounter
--- OUTSIDE RECORDS SUMMARY | 2024-06-23 08:12 | XMS_ITS | Encounter Summary ---
Author Organization [facility] Address 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
--- OUTSIDE RECORDS SUMMARY | 2024-06-23 08:12 | XMS_ITS | Encounter Summary ---
Author Organization [facility] Address [address] [place] [address] Care Team Providers Care Financial Services Manager Name Role Phone Unavailable Primary Care Provider Unavailabl e Encounter Details Date Type Department Care Team (Late st Contact Info) Description 06/13/2000 Outpatient Historical [facility] Jesus Church MD Social History Tobacco Use Types Packs/Day Years Used Date Smoking Tobacco: Never Assessed Sex and Gender Information Value Date Recorded Sex Assigned at Not on file Legal Sex Male 4:15 AM VOLUNTEER PATIENT REPRESENTATIVE Gender Identity Not on file Sexual Orientation Not on file documented as of this encounter Plan of Treatment Not on file documented as of this encounter Visit Diagnoses Not on filedocumented in this encounter
--- OUTSIDE RECORDS SUMMARY | 2024-06-23 08:12 | XMS_ITS | Referral Summary ---
Author Organization [facility] Address [address] [place] [address] Care Team Providers Care Title Investigator Name Role Phone Jack Umana MD Unavailable Deniz Scales MD Primary Care Provider [phone] Source Comments [facility],non-[place] Affiliates and Associated Physician Practices is amultiple site organization consisting of ambulatory clinics and hospital sitesin [place], [place], [place] and [place]. This disclosure is being madepursuant to the Care Everywhere program and may not contain all information available regarding this patient. Last updated 18.[facility] Encounters Date Type Department Care Team Description 03/26/2024 Refill [facility] Orthopedics [address] [place] [address], [address] [id number] Chucky Mckeon PA-C Refill Request from Last 3 Months Allergies No known active allergies Medications * [...] the same side., Route to Pharmacy Electronically, [facility]/pharmacy #[id number], [id number] [id number] , 177, cm, 03/21/23 10:46:00 CDT, Height, 104.33, kg, 10/26/23 10:46:00 CDT, Weight 03/25/2023 Active levoFLOXacin (Levaquin) [...] Primary osteoarthritis of right knee 08/31/2020 Immunizations Name Administration Dates Next Due INFLUENZA [...] Recorded Patient Health Questionnaire-2 Score 1 04/09/2023 [facility] [place] of Occupat ional Health - Occupational Stress [...] place to sleep or slept in a senior living (including now)? No 03/28/2023 Sex and Gender Information Value Date Recorded Sex Assigned at Male 07/10/2021 8:57 AM ELEPHANT KEEPER Gender Identity Male 07/10/2021 8:57 AM ELEPHANT KEEPER Sexual Orientation Not on file Last Filed Vital Signs Vital Sign Reading Time Taken Comments Blood Pressure 142/82 04/11/2023 12:37 PM ELEPHANT KEEPER Pulse 67 04/11/2023 12:37 PM ELEPHANT KEEPER Temperature 35.9 ??C (96.7 ??F) 04/11/2023 12:[address] Respiratory Rate 16 04/11/2023 12:37 PM ELEPHANT KEEPER Oxygen Saturation 96% 04/11/2023 12:37 PM ELEPHANT KEEPER Inhaled Oxygen Concentration - - Weight 103.9 kg (229 lb) 03/28/2023 6:58 AM CDT Height 177.8 cm (5' 10 ) 03/28/2023 6:58 AM CDT Body Mass Index 32.86 03/28/2023 6:58 AM CDT Functional Status Functional Status Response Date of [...] person have difficulty concentrating/remembering/making decisions? No 04/16/2022 Plan of Treatment Not on file Medical Devices Implanted Type Area Risk Intern Device Identifier Shelf Expiration Date Model / Serial / Lot Cmnt Bone Djo Srg Cblt 40gm Hvisc Strl Implanted:Qty: 2 on 04/16/2022 by Jack Umana MD at [facility] Left: Knee [employer] 06/22/2023 600-15-000 / / [id number] Cmpnt Fem Kn Lt Cr Cmnt Prm Vngrd Intlk 67.5mm Implanted:Qty: 1 on 04/16/2022 by Jack Umana MD at [facility] Left: Knee [employer] 03/06/2032 [id number] / / [id number] Cmpnt Ptlr Std 31mm 3 Pg Kn Ser A Implanted:Qty: 1 on 04/16/2022 by Jack Umana MD at [facility] Left: Knee [employer] 02/27/2027 [id number] / / [id number] Tray Tib 79mm Kn Cocr I Beam Implanted:Qty: 1 on 04/16/2022 by Jack Umana MD at [facility] Left: Knee [employer] 01/16/2032 [id number] / / [id number] Brng [id number] Vngrd Arcm Kn Ant Stab Implanted:Qty: 1 on 04/16/2022 by Jack Umana MD at [facility] Left: Knee [employer] 02/06/2027 [id number] / / [id number] Tray Tib 79mm Kn Cocr I Beam Implanted:Qty: 1 on 03/28/2023 by Jack Umana MD at [facility] Right: Knee [employer] 01/25/2033 [id number] / / [id number] Brng [id number] Vngrd Arcm Kn Ant Stab Implanted:Qty: 1 on 03/28/2023 by Jack Umana MD at [facility] Right: Knee [employer] 01/08/2027 [id number] / / [id number] Cmnt Bone Plc R 40gm Grn Implanted:Qty: 1 on 03/28/2023 by Jack Umana MD at [facility] Right: Knee [employer] 05/26/2025 [id number] / / [id number] Cmnt Bone Plc R 40gm Grn Implanted:Qty: 1 on 03/28/2023 by Jack Umana MD at [facility] Right: Knee [employer] 07/24/2025 [id number] / / [id number] Cmpnt Fem Kn Rt Cr Cmnt Prm Vngrd Intlk Implanted:Qty: 1 on 03/28/2023 by Jack Umana MD at [facility] Right: Knee [employer] 02/19/2033 [id number] / / [id number] Cmpnt Ptlr Std 31mm 3 Pg Kn Ser A Implanted:Qty: 1 on 03/28/2023 by Jack Umana MD at [facility] Right: Knee [employer] 01/17/2028 [id number] / / [id number] Procedures Procedure Name Priority Date/Time Associated Diagnosis Comments COMPREHENSIVE METABOLIC PANEL Routine 02/25/2023 9:02 AM CDT Pre-op evaluation from Last 3 Months or Most Recently Relevant to Health Maintenance Results * (ABNORMAL) COMPREHENSIVE METABOLIC PANEL (02/25/2023 9:02 AM CDT) Glucose 100 70 - 105 mg/dL 02/25/2023 9:29 AM CDT [facility] Sodium 141 136 - 145 mmol/L 02/25/2023 9:29 AM CDT [facility] Potassium 4.2 3.5 - 5.1 mmol/L 02/25/2023 9:29 AM CDT [facility] Chloride 107 98 - 107 mmol/L 02/25/2023 9:29 AM CDT [facility] CO2 24 22 - 29 mmol/L 02/25/2023 9:29 AM CDT [facility] Calcium 9.7 8.4 - 10.4 mg/dL 02/25/2023 9:29 AM CDT [facility] Anion Gap 10 6 - 16 mmol/L 02/25/2023 9:29 AM CDT [facility] BUN 15 7 - 26 mg/dL 02/25/2023 9:29 AM CDT [facility] Creatinine 0.98 0.72 - 1.25 mg/dL 02/25/2023 9:29 AM T [facility] Alkaline Phosphatase 47 40 - 150 U/L 02/25/2023 9:29 AM CDT [facility] ALT 24 0 - 55 U/L 02/25/2023 9:29 AM CDT [facility] AST 22 5 - 34 U/L 02/25/2023 9:29 AM CDT [facility] Protein Total 6.7 6.4 - 8.3 gm/dL 02/25/2023 9:29 AM CDT [facility] Albumin 3.8 3.4 - 5.0 gm/dL 02/25/2023 9:29 AM T [facility] Bilirubin Total 0.5 0.2 - 1.2 mg/dL 02/25/2023 9:29 AM [facility] eGFR by CKD-EPI 82(L) >=90 mL/min/1.7 3 m2 02/25/2023 9:29 AM T [facility] Blood BLOOD SPECIMEN / Unknown Venipuncture / Unknown 02/25/2023 9:02 AM CDT 02/25/2023 9:09 AM CDT Jag Márquez GAS ENGINE OPERATOR-CREDIT DIRECTOR LAB - CHEMISTRY ORDERABLES [facility] [address] [place] [address] from Last 3 Months or Most Recently Relevant to Health Maintenance Advance Directives Documents on File Type Date Recorded Patient Veterinary Anatomist Expl anation Adv Directive/Living Will/POA 04/01/2023 9:15 PM * Full Code (Latest Code Status on File) Date Activated Date Inactivated Comments 03/28/2023 11:05 AM 03/29/2023 2:16 PM * Full Code Date Activated Date Inactivated Comments 04/16/2022 2:36 PM 04/17/2022 4:49 PM Care Teams Title Investigator Relationship Specialty Start Date End Date Deniz Scales MD [facility] [place] [id number] PCP - General Family Medicine 02/25/23 [place] [address] [place] [address] Surgeon Orthopedic Surgery 03/17/21
--- OUTSIDE RECORDS SUMMARY | 2024-06-23 08:13 | XMS_ITS | CONTINUITY OF CARE DOCUMENT ---
Author Name rasheed iqbal Address Unknown Organization [facility] Address [address] [place] [address] Phone [phone] Care Team Providers Care Pipeline Systems Operator Name Role Phone Pankaj MARTINI, González Unavailable [phone] SUNSHINE GALLEGOS MD Unavailable [phone] INSURANCE PROVIDERS Payer name Policy type / Coverage type Navjot red democrat ID [facility] [id number] Other [id number]
--- OUTSIDE RECORDS SUMMARY | 2024-06-23 08:13 | XMS_ITS | Continuity of Care Document ---
Author Organization [facility] Address [address] [place] [address] Phone Care Team Providers Care Information Clerk Brokerage Name Role Phone Fior Duarte MD Unavailable Unavailable Allergies, Adverse Reactions, Alerts Substance Reaction Status Criticality No Known Allergies Active No Inform ation Medications Medication Instructions Dosage Effective Dates (start - stop) Status Comments fenofibrate 160 mg tablet take 1 tablet by oral route every day 160 MG - Active hydrochlorothiazide 12.5 mg tablet take 1 tablet by oral route every day 12.5 MG - Active valsartan 160 mg-hydrochlorothiazide 12.5 mg tablet take 1 tablet by oral route every day 1.00 tablet - Active rosuvastatin 20 mg tablet take 1 tablet by oral route every day 20 MG - Active trazodone 50 mg tablet take 1 tablet by oral route 2 times every day after meals 50 MG - Active dutasteride 0.5 mg capsule take 1 capsule by oral route every day 0.5 MG - Active amlodipine 5 mg tablet take 1 tablet by oral route every day 5 MG - Active aspirin 81 mg chewable tablet chew 1 tablet by oral route every day 81 MG - Active fexofenadine 180 mg tablet take 1 tablet by oral route every day 180 MG - Active GLUCOSAMINE-CHONDROITIN (unknown strength) Not Available - Active Advance Directives Directive Yes / No Effective Date File Name No Information Encounters Encounter Description Practice Location Reason(s) For Visit Diagnoses Date Provider Providers [facility] [address], [place], [place], [id number], tel:[phone] [facility] No Information Gerald Childress. [address], [id number], . tel:[phone] [facility], [address], [place], [place], [address], tel:[phone] [facility] Diverticulitis of sigmoid colonPersonal history of colonic polyps Gerald Childress. [address], [address], [id number], . tel:[phone] Referring Provider: Deniz Scales, [facility] [facility], [place], [address]. tel:[phone] [facility], [address], [place], [place], [address], tel:[phone] [facility] No Information Gerald Grantmadhuri. [address] [facility], [address], [id number], . tel:[phone] Family History Family Member Type Diagnosis Age At Onset Brother Problem (finding) cancer of the esophagus Mother Problem (finding) malignant neop lasm of breast in first degree relative Payers Payer name Insurance type Covered libertarian ID Authoriza tion(s) No Information Social History Type Description Quantity Date Captured Comments Alcohol Use Details Unknown Caffeine Use Details Unknown Tobacco Use Status No Information Smoking Status No Information Sex Male Sexual Orientation Straight or heterosexual Gender Identity Male Chief Complaint And Reason For Visit No [...]
--- NOTE | 2024-06-23 08:16 | ECG_ITS ---
Test Date: 2024-06-23 08:34:00 Measurements Intervals [place] Rate: 72 P: 52 PA: 156 QRS: 33 QRSD: 98 T: 30 QT: 369 QTc: 405 Interpretive Statements SINUS RHYTHM WARNING: DATA QUALITY MAY AFFECT INTERPRETATION No previous ECG available for comparison Electronically Signed On 06-23-2024 16:17:16 CADASTRAL SURVEYOR by Elisabet Lorenzo M.D.
[2024-06-23 10:14] LABS: Anion Gap 9 mmol/L (4-12); Blood Urea Nitrogen 25 mg/dL (9-20); Calcium 9.4 mg/dL (8.4-10.2); Carbon Dioxide 25 mmol/L (22-30); Chloride 105 mmol/L (98-107); Estimated Glomerular Filt Rate 56; Glucose 104 mg/dL (65-110); Potassium 4.3 mmol/L (3.4-5.0); Sodium 139 mmol/L (137-145)
== END 2024-06-23 07:57 | disposition home or self-care (01) ==
LOC: ANHSURGERY 08:03
PROVIDERS: Anesthesiology; PCP Family Medicine; Visit Provider Surgery
DX: Z51.81 Encounter for therapeutic drug level monitoring (principal); I10 Essential (primary) hypertension
CPT/HCPCS: 36415; 80048; 93005

== ENCOUNTER 2024-06-25 01:58 | Day surgery (SDC) | payer MEDICARE, OTHER, SELFPAY ==
[2024-06-18 13:49] VITALS: BMI 33.5
--- NOTE | 2024-06-18 14:14 | PC.NURSE ---
Report to the Outpatient Waiting Room, entrance under the green pavilion located off [facility], at time ___6:00AM____ on date ____06/25/24___. Planned Procedure Time: __7:30AM .? Time changes happen often and if your time is changed the preop area will call you the afternoon before. - You and your visitor will be asked to self-screen and do not enter if you have any COVID symptoms. Please call surgeon if you need to reschedule. - A mask is optional within the hospital at this time. Patients may have clear liquids (water, carbonated beverages, clear teas, apple juice) until 3 hours prior to surgery (4:30AM) with a maximum of 20 ounces. - No food from midnight until time of surgery and no smoking. This includes no chewing gum, candy or mints. Take only the following medications with a SIP of water on the morning of surgery: ___DOXAZOSIN, METOPROLOL DO NOT STOP ANY OF YOUR OTHER PRESCRIPTION MEDICATIONS PRIOR TO SURGERY EXCEPT THE FOLLOWING Medications to discontinue per physician ____HOLD ALL VITAMINS/SUPPLEMENTS 3 DAYS PRE-OP PER ANESTHESIA Date to take last dose 06/21/24 Please no make-up, nail beninese, hairspray, perfume, deodorant, or body powder the day of surgery.? No jewelry (including any body piercings) or valuables the day of surgery, leave them at home.? Please take a shower or bath the night before, or the morning of, surgery with an antibacterial soap.? Wear comfortable, loose fitting clothing.? - Jewelry must be removed prior to entering the operating room.? Rings and piercings that are not removed may be cut off. - The hospital will not accept responsibility for valuables.? - Please leave all valuables, including medications, at home the day of surgery. If you are going home after surgery, a licensed stage driver must drive you home.? - NO public transportation without another adult if you receive anesthesia. - We recommend that an adult stay with you for 24 hours following discharge. - We also recommend that you do not drive, make important decision, drink alcoholic beverages, or take any drugs that were not prescribed by your health care provider for at least 24 hours after your discharge time. Follow any additional instructions given to you from your surgeon. Telephone instructions given to ___PATIENT and asked if any additional questions and then verbalized understanding. Patient advised to call surgeon office or pre surgery nurse liaison [phone] if any additional questions.
[2024-06-25] VITALS (8 sets, daily range): BP systolic 115–135; BP diastolic 65–75; PULSE 54–80; RESP 12–20; TEMP 36.1–36.4; O2SAT 97–100
--- OUTSIDE RECORDS SUMMARY | 2024-06-25 02:00 | XMS_ITS | Encounter Summary ---
Author Organization [facility] Address 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
--- OUTSIDE RECORDS SUMMARY | 2024-06-25 02:00 | XMS_ITS | Encounter Summary ---
Author Organization [facility] Address [address] [place] [place] [address] Care Team Providers Care Core Analysis Operator Name Role Phone Ernesto Davila MD Primary Care Provider [phone] Jack Umana MD Unavailable [phone] Deniz Scales MD Primary Care Provider [phone] Encounter Details Date Type Department Care Team (Late st Contact Info) Description 05/10/2022 [facility] Outpatient Visit [facility] Orthopedics [address] [place] [id number] [place] [address] [address] Social History Tobacco Use Types [...] Sex Assigned at Male 07/10/2021 8:57 AM CUTTING INSPECTOR Gender Identity Male 07/10/2021 8:57 AM CUTTING INSPECTOR Sexual Orientation Not on file documented as [...] on filedocumented in this encounter Care Teams Core Analysis Operator Relationship Specialty Start Date End Date Ernesto Davila MD [address] [place] [address] PCP - General Family Medicine 08/05/20 02/24/23 Deniz Scales MD [address] [place] [address] PCP - General Family Medicine 02/25/23 [place] [address] [place] [address] Surgeon Orthopedic Surgery 03/17/21 documented as of this encounter
--- OUTSIDE RECORDS SUMMARY | 2024-06-25 02:00 | XMS_ITS | Patient Health Summary ---
Author Organization [facility] Address [address] [place] [address] Care Team Providers Care Seismic Computer Name Role Phone Jack Umana MD Unavailable Deniz Scales MD Primary Care Provider [phone] Note from [facility],non-owned Affiliates and Associated Physician Practices is amultiple site organization consisting of ambulatory clinics and hospital sitesin [place], [place], [place] and [place]. This disclosure is being madepursuant to the Care Everywhere program and may not contain all information available regarding this patient. Last updated 18.[facility] Allergies No known active allergies Medications * [...] on the same side.,Route to Pharmacy Electronically, [facility]/pharmacy #[id number], [id number], 177, cm, 03/21/23 10:46:00 CDT, Height, 104.33, [...] Recorded Patient Health Questionnaire-2 Score 1 04/09/2023 [facility] [place] of Occupat ional Health - Occupational Stress [...] place to sleep or slept in a jail (including now)? No 03/28/2023 Sex and Gender Information Value Date Recorded Sex Assigned at Male 07/10/2021 8:57 AM GRAPHIC ENGINEER Gender Identity Male 07/10/2021 8:57 AM GRAPHIC ENGINEER Sexual Orientation Not on file Last Filed Vital Signs Vital Sign Reading Time Taken Comments Blood Pressure 142/82 04/11/2023 12:37 PM GRAPHIC ENGINEER Pulse 67 04/11/2023 12:37 PM GRAPHIC ENGINEER Temperature 35.9 ??C (96.7 ??F) 04/11/2023 12:[address] Respiratory Rate 16 04/11/2023 12:37 PM GRAPHIC ENGINEER Oxygen Saturation 96% 04/11/2023 12:37 PM GRAPHIC ENGINEER Inhaled Oxygen Concentration - - Weight 103.9 kg (229 lb) 03/28/2023 6:58 AM CDT Height 177.8 cm (5' 10 ) 03/28/2023 6:58 AM CDT Body Mass Index 32.86 03/28/2023 6:58 AM CDT Medical Devices Implanted Type Area Drawing Machine Operator Device Identifier Shelf Expiration Date Model / Serial / Lot Cmnt Bone Djo Srg Cblt 40gm Hvisc Strl Implanted:Qty: 2 on 04/16/2022 by Jack Umana MD at [facility] Left: Knee [employer] 06/22/2023 600-15-000 / / [id number] Cmpnt Fem Kn Lt Cr Cmnt Prm Vngrd Intlk 67.5mm Implanted:Qty: 1 on 04/16/2022 by Jack Umana MD at [facility] Left: Knee [employer] 03/06/2032 [id number] / / [id number] Cmpnt Ptlr Std 31mm 3 Pg Kn Ser A Implanted:Qty: 1 on 04/16/2022 by Jack Umana MD at [facility] Left: Knee [employer] 02/27/2027 [id number] / / [id number] Tray Tib 79mm Kn Cocr I Beam Implanted:Qty: 1 on 04/16/2022 by Jack Umana MD at [facility] Left: Knee [employer] 01/16/2032 [id number] / / [id number] Brng [id number] Vngrd Arcm Kn Ant Stab Implanted:Qty: 1 on 04/16/2022 by Jack Umana MD at [facility] Left: Knee [employer] 02/06/2027 [id number] / / [id number] Tray Tib 79mm Kn Cocr I Beam Implanted:Qty: 1 on 03/28/2023 by Jack Umana MD at [facility] Right: Knee [employer] 01/25/2033 [id number] / / [id number] Brng [id number] Vngrd Arcm Kn Ant Stab Implanted:Qty: 1 on 03/28/2023 by Jack Umana MD at [facility] Right: Knee [employer] 01/08/2027 [id number] / / [id number] Cmnt Bone Plc R 40gm Grn Implanted:Qty: 1 on 03/28/2023 by Jack Umana MD at [facility] Right: Knee [employer] 05/26/2025 [id number] / / [id number] Cmnt Bone Plc R 40gm Grn Implanted:Qty: 1 on 03/28/2023 by Jack Umana MD at [facility] Right: Knee [employer] 07/24/2025 [id number] / / [id number] Cmpnt Fem Kn Rt Cr Cmnt Prm Vngrd Intlk Implanted:Qty: 1 on 03/28/2023 by Jack Umana MD at [facility] Right: Knee [employer] 02/19/2033 [id number] / / [id number] Cmpnt Ptlr Std 31mm 3 Pg Kn Ser A Implanted:Qty: 1 on 03/28/2023 by Jack Umana MD at [facility] Right: Knee [employer] 01/17/2028 [id number] / / [id number] Procedures * XR KNEE RIGHT 3VW(Performed 05/07/2023) Performed for Aftercare following right knee joint replacement surgery * MI TOTAL KNEE REPLACEMENT(Performed 03/28/2023) * EKG 12-LEAD(Performed [...] 02(Performed 04/16/2022) * NEURAXIAL BLOCK(Performed 04/16/2022) * MI TOTAL KNEE REPLACEMENT(Performed 04/16/2022) * COMPREHENSIVE METABOLIC [...] XR KNEE RIGHT 3VW (05/07/2023 12:06 PM GRAPHIC ENGINEER) Narrative [facility] [place] [address] - 05/07/2023 12:06 PM GRAPHIC ENGINEER Please see progress note in Epic for results. Jack Umana MD DIAGNOSTIC IMAGING O RDERABLES Performing Organization Address City/[facility]/ZIP Co de Phone Number [facility] [place] [address] * EKG 12-LEAD (02/25/2023 9:14 AM CDT) Only the most recent of2 resultswithin the time period is included. Ventricular Rate 65 BPM [facility] Atrial Rate 65 BPM [facility] P-R Interval 182 ms [facility] QRS Duration ms 82 ms [facility] Q-T Interval ms 398 ms [facility] QTC Calculation (Bezet) 413 ms [facility] Calculated P Byars 33 degrees [facility] Calculated R Byars 51 degrees [facility] Calculated T Byars 54 degrees [facility] Interpretation EKG Normal sinus rhythm Normal ECG When compared with ECG of 16-MAR-2022 08:19, No significant change was found Confirmed by MARITO MARTINI, LEXUS CARR ([id number]) on 02/25/2023 1:06:10 PM [facility]USE 02/25/2023 [...] - 3.94 x10E9/L 02/25/2023 9:15 AM CDT [facility] Monocytes Absolute 0.68 0.26 - 1.07 x10E9/L 02/25/2023 9:15 AM CDT [facility] Eosinophils Absolute 0.08 0 - 0.47 x10E9/L 02/25/2023 9:15 AM CDT [facility] Basophils Absolute 0.03 0 - 0.08 x10E9/L 02/25/2023 9:15 AM CDT [facility] Immature Granulocytes Absolute 0.01 0.00 - 0.06 x10E9/L 02/25/2023 9:15 AM CDT [facility] nRBC Auto 0 /100 WBC 02/25/2023 9:15 AM CDT [facility] Blood BLOOD SPECIMEN / Unknown Venipuncture / Unknown 02/25/2023 9:02 AM CDT 02/25/2023 9:09 AM CDT Jag Márquez LANDSCAPING SUPERVISOR-WIND UP OPERATOR LAB - HEMATOLOGY ORDERABLES [facility] [address] [place] [address] * (ABNORMAL) COMPREHENSIVE METABOLIC PANEL (02/25/2023 9:02 AM CDT) Only the most recent of2 resultswithin the time period is included. Glucose 100 70 - 105 mg/dL 02/25/2023 9:29 AM CDT [facility] Sodium 141 136 - 145 mmol/L 02/25/2023 9:29 AM CDT [facility] Potassium 4.2 3.5 - 5.1 mmol/L 02/25/2023 9:29 AM CDT [facility] Chloride 107 98 - 107 mmol/L 02/25/2023 9:29 AM CDT [facility] CO2 24 22 - 29 mmol/L 02/25/2023 9:29 AM CDT [facility] Calcium 9.7 8.4 - 10.4 mg/dL 02/25/2023 9:29 AM CDT [facility] Anion Gap 10 6 - 16 mmol/L 02/25/2023 9:29 AM CDT [facility] BUN 15 7 - 26 mg/dL 02/25/2023 9:29 AM CDT [facility] Creatinine 0.98 0.72 - 1.25 mg/dL 02/25/2023 9:29 AM CDT [facility] Alkaline Phosphatase 47 40 - 150 U/L 02/25/2023 9:29 AM CDT [facility] ALT 24 0 - 55 U/L 02/25/2023 9:29 AM CDT [facility] AST 22 5 - 34 U/L 02/25/2023 9:29 AM CDT [facility] Protein Total 6.7 6.4 - 8.3 gm/dL 02/25/2023 9:29 AM CDT [facility] Albumin 3.8 3.4 - 5.0 gm/dL 02/25/2023 9:29 AM CDT [facility] Bilirubin Total 0.5 0.2 - 1.2 mg/dL 02/25/2023 9:29 AM T [facility] eGFR by CKD-EPI 82(L) >=90 mL/min/1.7 3 m2 02/25/2023 9:29 AM CDT [facility] Blood BLOOD SPECIMEN / Unknown Venipuncture / Unknown 02/25/2023 9:02 AM CDT 02/25/2023 9:09 AM CDT Jag Márquez LANDSCAPING SUPERVISOR-WIND UP OPERATOR LAB - CHEMISTRY ORDERABLES Performing Organization Address City/State/[facility] Co de Phone Number [facility] [address] [place] [address] * XR KNEE LEFT 3VW (05/29/2022 11:13 AM GRAPHIC ENGINEER) Anatomical Region Laterality Modality Lower Extremity Computed Radiogr aphy Narrative 05/29/2022 11:13 AM GRAPHIC ENGINEER Lillian George, RT(R) ? 06/11/2022 11:29 AM See progress notes for results Yaw Macdonald LANDSCAPING SUPERVISOR-WIND UP OPERATOR DIAGNOSTI C IMAGING ORDERABLES * VAS LEFT VENOUS DUPLEX LE (05/09/2022) Anatomical Region Laterality Modality Lower Extremity, Upper Extremity Other Jack Umana MD VASCULAR LAB ORDERAB LES * Neuraxial Block (04/16/2022 12:30 PM GRAPHIC ENGINEER) Narrative Tatiana Bowie APRN-CRNA - 04/16/2022 12:30 PM GRAPHIC ENGINEER Tatiana Bowie APRN-CRNA ? 04/16/2022 12:33 PM [...] * LARYNGEAL MASK AIRWAY (04/18/2021 8:47 AM GRAPHIC ENGINEER) Narrative Anel Pleitez APRN-CRNA - 04/18/2021 8:47 AM GRAPHIC ENGINEER Anel Pleitez APRN-CRNA ? 04/18/2021 ??8:48 AM [...] METABOLIC PANEL (CALCIUM TOTAL) (04/18/2021 7:21 AM GRAPHIC ENGINEER) Glucose 97 70 - 105 mg/dL 04/18/2021 7:40 AM GRAPHIC ENGINEER [facility] Sodium 140 136 - 145 mmol/L 04/18/2021 7:40 AM GRAPHIC ENGINEER [facility] Potassium 4.2 3.5 - 5.1 mmol/L 04/18/2021 7:40 AM GRAPHIC ENGINEER [facility] Chloride 107 98 - 107 mmol/L 04/18/2021 7:40 AM GRAPHIC ENGINEER [facility] CO2 22(L) 23 - 31 mmol/L 04/18/2021 7:40 AM GRAPHIC ENGINEER [facility] Calcium 9.7 8.4 - 10.4 mg/dL 04/18/2021 7:40 AM GRAPHIC ENGINEER [facility] Anion Gap 11 8 - 18 mmol/L 04/18/2021 7:40 AM GRAPHIC ENGINEER [facility] BUN 15 8.4 - 25.7 mg/dL 04/18/2021 7:40 AM GRAPHIC ENGINEER [facility] Creatinine 0.90 0.72 - 1.25 mg/dL 04/18/2021 7:40 AM GRAPHIC ENGINEER [facility] eGFR by MDRD >60 mL/min/1.7 3m2 04/18/2021 7:40 AM GRAPHIC ENGINEER [facility] eGFR by MDRD >60 mL/min/1.7 3m2 04/18/2021 7:40 AM GRAPHIC ENGINEER [facility] Blood BLOOD SPECIMEN / Unknown Venipuncture / Unknown 04/18/2021 7:21 AM GRAPHIC ENGINEER 04/18/2021 7:26 AM GRAPHIC ENGINEER Neela Patrick Plaza DO LAB - CHEMISTRY SHAHANA GARCIA [facility] [address] [place] [address] * MRI KNEE LEFT WO CONTRAST (03/21/2021 [...] MD DIAGNOSTIC IMAGING O RDERABLES Care Teams Seismic Computer Relationship Specialty Start Date End Date Deniz Scales MD [address] [place] [address] PCP - General Family Medicine 02/25/23 [place] [address] [address] Surgeon Orthopedic Surgery 03/17/21
--- OUTSIDE RECORDS SUMMARY | 2024-06-25 02:00 | XMS_ITS | Clinical Summary ---
Author Organization [facility] [employer] Address [address] [place] [address] Care Team Providers Care Solar Tech Name Role Phone Jack Umana MD Unavailable Deniz Scales MD Primary Care Provider [phone] Source Comments [facility],non-owned Affiliates and Associated Physician Practices is amultiple site organization consisting of ambulatory clinics and hospital sitesin [place], [place], [place] and [place]. This disclosure is being madepursuant to the Care Everywhere program and may not contain all information available regarding this patient. Last updated 18.[facility] [employer] Allergies No known active allergies Medications * [...] the same side., Route to Pharmacy Electronically, [facility]/pharmacy #[id number], [id number] , 177, cm, 03/21/23 10:46:00 CDT, Height, [...] Type Department Care Team Description 03/26/2024 Refill [facility] Orthoped[facility] [address] [place] [address], [address] [place] [id number] Chucky Mckeon PA-C Refill Request from Last [...] Recorded Patient Health Questionnaire-2 Score 1 04/09/2023 [facility] [place] of Occupat ional Health - Occupational Stress [...] place to sleep or slept in a residential (including now)? No 03/28/2023 Sex and Gender Information Value Date Recorded Sex Assigned at Male 07/10/2021 8:57 AM BODY MAKE UP ARTIST Gender Identity Male 07/10/2021 8:57 AM BODY MAKE UP ARTIST Sexual Orientation Not on file Last Filed Vital Signs Vital Sign Reading Time Taken Comments Blood Pressure 142/82 04/11/2023 12:37 PM BODY MAKE UP ARTIST Pulse 67 04/11/2023 12:37 PM BODY MAKE UP ARTIST Temperature 35.9 ??C (96.7 ??F) 04/11/2023 12:[address] Respiratory Rate 16 04/11/2023 12:37 PM BODY MAKE UP ARTIST Oxygen Saturation 96% 04/11/2023 12:37 PM BODY MAKE UP ARTIST Inhaled Oxygen Concentration - - Weight 103.9 [...] this topic Medical Devices Implanted Type Area Greenhouse Superintendent Device Identifier Shelf Expiration Date Model / Serial / Lot Cmnt Bone Djo Srg Cblt 40gm Hvisc Strl Implanted:Qty: 2 on 04/16/2022 by Jack Umana MD at [facility] Left: Knee [employer] 06/22/2023 600-15-000 / / [id number] Cmpnt Fem Kn Lt Cr Cmnt Prm Vngrd Intlk 67.5mm Implanted:Qty: 1 on 04/16/2022 by Jack Umana MD at [facility] Left: Knee [employer] 03/06/2032 [id number] / / [id number] Cmpnt Ptlr Std 31mm 3 Pg Kn Ser A Implanted:Qty: 1 on 04/16/2022 by Jack Umana MD at [facility] Left: Knee [employer] 02/27/2027 [id number] / / [id number] Tray Tib 79mm Kn Cocr I Beam Implanted:Qty: 1 on 04/16/2022 by Jack Umana MD at [facility] Left: Knee [employer] 01/16/2032 [id number] / / [id number] Brng [id number] Vngrd Arcm Kn Ant Stab Implanted:Qty: 1 on 04/16/2022 by Jack Umana MD at [facility] Left: Knee [employer] 02/06/2027 [id number] / / [id number] Tray Tib 79mm Kn Cocr I Beam Implanted:Qty: 1 on 03/28/2023 by Jack Umana MD at [facility] Right: Knee [employer] 01/25/2033 [id number] / / [id number] Brng [id number] Vngrd Arcm Kn Ant Stab Implanted:Qty: 1 on 03/28/2023 by Jack Umana MD at [facility] Right: Knee [employer] 01/08/2027 [id number] / / [id number] Cmnt Bone Plc R 40gm Grn Implanted:Qty: 1 on 03/28/2023 by Jack Umana MD at [facility] Right: Knee [employer] 05/26/2025 [id number] / / [id number] Cmnt Bone Plc R 40gm Grn Implanted:Qty: 1 on 03/28/2023 by Jack Umana MD at [facility] Right: Knee [employer] 07/24/2025 [id number] / / [id number] Cmpnt Fem Kn Rt Cr Cmnt Prm Vngrd Intlk Implanted:Qty: 1 on 03/28/2023 by Jack Umana MD at [facility] Right: Knee [employer] 02/19/2033 [id number] / / [id number] Cmpnt Ptlr Std 31mm 3 Pg Kn Ser A Implanted:Qty: 1 on 03/28/2023 by Jack Umana MD at [facility] Right: Knee [employer] 01/17/2028 [id number] / / [id number] Procedures Procedure Name Priority Date/Time Associated Diagnosis [...] CDT 02/25/2023 9:09 AM CDT Jag Márquez WEBSITE DESIGNER-HOME CARE RN LAB - CHEMISTRY ORDERABLES [facility] [address] [place] [address] [id number] from Last 3 Months or Most Recently Relevant to Health Maintenance Advance Directives Documents on File Type Date Recorded Patient Senior Oracle Soa Developer Expl anation Adv Directive/Living Will/POA 04/01/2023 9:15 PM * Full Code (Latest Code Status on File) Date Activated Date Inactivated Comments 03/28/2023 11:05 AM 03/29/2023 2:16 PM * Full Code Date Activated Date Inactivated Comments 04/16/2022 2:36 PM 04/17/2022 4:49 PM Care Teams Solar Tech Relationship Specialty Start Date End Date Deniz Scaels MD [facility] [place] [address] PCP - General Family Medicine 02/25/23 [place] [id number] [address] Surgeon Orthopedic Surgery 03/17/21
--- OUTSIDE RECORDS SUMMARY | 2024-06-25 02:00 | XMS_ITS | Encounter Summary ---
Author Organization [facility] Address 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
--- OUTSIDE RECORDS SUMMARY | 2024-06-25 02:00 | XMS_ITS | Referral Summary ---
Author Organization [facility] Address [address] [facility] [place] [address] Care Team Providers Care Business Office Manager Name Role Phone Jack Umana MD Unavailable [phone] Deniz Scales MD Primary Care Provider [phone] Source Comments [facility],non-[place] behavioral health Affiliates and Associated Physician Practices is amultiple site organization consisting of ambulatory clinics and hospital sitesin [place], [place], [place] and [place]. This disclosure is being madepursuant to the Care Everywhere program and may not contain all information available regarding this patient. Last updated 18.[facility] Encounters Date Type Department Care Team Description 03/26/2024 Refill [facility] [address] [place] [address], [address] [id number] Chucky Mckeon PA-C Refill Request from Last [...] the same side., Route to Pharmacy Electronically, [facility]/pharmacy #[id number], [id number] , 177, cm, 03/21/23 10:46:00 CDT, Height, [...] Recorded Patient Health Questionnaire-2 Score 1 04/09/2023 [facility] [place] of Occupat ional Health - Occupational Stress [...] place to sleep or slept in a skilled nursing (including now)? No 03/28/2023 Sex and Gender Information Value Date Recorded Sex Assigned at Male 07/10/2021 8:57 AM LINE MANAGER Gender Identity Male 07/10/2021 8:57 AM LINE MANAGER Sexual Orientation Not on file Last Filed Vital Signs Vital Sign Reading Time Taken Comments Blood Pressure 142/82 04/11/2023 12:37 PM LINE MANAGER Pulse 67 04/11/2023 12:37 PM LINE MANAGER Temperature 35.9 ??C (96.7 ??F) 04/11/2023 12:[address] Respiratory Rate 16 04/11/2023 12:37 PM LINE MANAGER Oxygen Saturation 96% 04/11/2023 12:37 PM LINE MANAGER Inhaled Oxygen Concentration - - Weight 103.9 [...] on file Medical Devices Implanted Type Area Supervisor Fur Dressing Device Identifier Shelf Expiration Date Model / Serial / Lot Cmnt Bone Djo Srg Cblt 40gm Hvisc Strl Implanted:Qty: 2 on 04/16/2022 by Jack Umana MD at [facility] Left: Knee [employer] 06/22/2023 600-15-000 / / [id number] Cmpnt Fem Kn Lt Cr Cmnt Prm Vngrd Intlk 67.5mm Implanted:Qty: 1 on 04/16/2022 by Jack Umana MD at [facility] Left: Knee [employer] 03/06/2032 [id number] / / [id number] Cmpnt Ptlr Std 31mm 3 Pg Kn Ser A Implanted:Qty: 1 on 04/16/2022 by Jack Umana MD at [facility] Left: Knee [employer] 02/27/2027 [id number] / / [id number] Tray Tib 79mm Kn Cocr I Beam Implanted:Qty: 1 on 04/16/2022 by Jack Umana MD at [facility] Left: Knee [employer] 01/16/2032 [id number] / / [id number] Brng [id number] Vngrd Arcm Kn Ant Stab Implanted:Qty: 1 on 04/16/2022 by Jack Umana MD at [facility] Left: Knee [employer] 02/06/2027 [id number] / / [id number] Tray Tib 79mm Kn Cocr I Beam Implanted:Qty: 1 on 03/28/2023 by Jack Umana MD at [facility] Right: Knee [employer] 01/25/2033 [id number] / / [id number] Brng 46icc66mg Vngrd Arcm Kn Ant Stab Implanted:Qty: 1 on 03/28/2023 by Jack Umana MD at [facility] Right: Knee [employer] 01/08/2027 [id number] / / [id number] Cmnt Bone Plc R 40gm Grn Implanted:Qty: 1 on 03/28/2023 by Jack Umana MD at [facility] Right: Knee [employer] 05/26/2025 [id number] / / [id number] Cmnt Bone Plc R 40gm Grn Implanted:Qty: 1 on 03/28/2023 by Jack Umana MD at [facility] Right: Knee [employer] 07/24/2025 [id number] / / [id number] Cmpnt Fem Kn Rt Cr Cmnt Prm Vngrd Intlk Implanted:Qty: 1 on 03/28/2023 by Jack Umana MD at [facility] Right: Knee [employer] 02/19/2033 [id number] / / [id number] Cmpnt Ptlr Std 31mm 3 Pg Kn Ser A Implanted:Qty: 1 on 03/28/2023 by Jack Umana MD at [facility] Right: Knee [employer] 01/17/2028 [id number] / / [id number] Procedures Procedure Name Priority Date/Time Associated Diagnosis Comments COMPREHENSIVE METABOLIC PANEL Routine 02/25/2023 9:02 AM CDT Pre-op evaluation from Last 3 Months or Most Recently Relevant to Health Maintenance Results * (ABNORMAL) COMPREHENSIVE METABOLIC PANEL (02/25/2023 9:02 AM CDT) Glucose 100 70 - 105 mg/dL 02/25/2023 9:29 AM CDT [facility] Sodium 141 136 - 145 mmol/L 02/25/2023 9:29 AM CDT [facility] Potassium 4.2 3.5 - 5.1 mmol/L 02/25/2023 9:29 AM CDT [facility] Chloride 107 98 - 107 mmol/L 02/25/2023 9:29 AM CDT [facility] CO2 24 22 - 29 mmol/L 02/25/2023 9:29 AM CDT [facility] Calcium 9.7 8.4 - 10.4 mg/dL 02/25/2023 9:29 AM CDT [facility] Anion Gap 10 6 - 16 mmol/L 02/25/2023 9:29 AM CDT [facility] BUN 15 7 - 26 mg/dL 02/25/2023 9:29 AM CDT [facility] Creatinine 0.98 0.72 - 1.25 mg/dL 02/25/2023 9:29 AM T [facility] Alkaline Phosphatase 47 40 - 150 U/L 02/25/2023 9:29 AM CDT [facility] ALT 24 0 - 55 U/L 02/25/2023 9:29 AM CDT [facility] AST 22 5 - 34 U/L 02/25/2023 9:29 AM CDT [facility] Protein Total 6.7 6.4 - 8.3 gm/dL 02/25/2023 9:29 AM CDT [facility] Albumin 3.8 3.4 - 5.0 gm/dL 02/25/2023 9:29 AM T [facility] Bilirubin Total 0.5 0.2 - 1.2 mg/dL 02/25/2023 9:29 AM [facility] eGFR by CKD-EPI 82(L) >=90 mL/min/1.7 3 m2 02/25/2023 9:29 AM T [facility] Blood BLOOD SPECIMEN / Unknown Venipuncture / Unknown 02/25/2023 9:02 AM CDT 02/25/2023 9:09 AM CDT Jag Márquez FASHION MODEL-CINDER PIT WORKER LAB - CHEMISTRY ORDERABLES [facility] [address] [place] [address] from Last 3 Months or Most Recently Relevant to Health Maintenance Advance Directives Documents on File Type Date Recorded Patient Assembler Gold Frame Expl anation Adv Directive/Living Will/POA 04/01/2023 9:15 PM * Full Code (Latest Code Status on File) Date Activated Date Inactivated Comments 03/28/2023 11:05 AM 03/29/2023 2:16 PM * Full Code Date Activated Date Inactivated Comments 04/16/2022 2:36 PM 04/17/2022 4:49 PM Care Teams Business Office Manager Relationship Specialty Start Date End Date Deniz Scales MD [facility] [place] [phone] PCP - General Family Medicine 02/25/23 [place] [address] [place] [address] Surgeon Orthopedic Surgery 03/17/21
--- OUTSIDE RECORDS SUMMARY | 2024-06-25 02:00 | XMS_ITS | Encounter Summary ---
Author Organization [facility] Address [address] [place] [address] Care Team Providers Care President Ceo & Founder Name Role Phone Unavailable Primary Care Provider Unavailabl e Encounter Details Date Type Department Care Team (Late st Contact Info) Description 06/13/2000 Outpatient Historical [facility] Jesus Church MD Social History Tobacco Use Types Packs/Day Years Used Date Smoking Tobacco: Never Assessed Sex and Gender Information Value Date Recorded Sex Assigned at Not on file Legal Sex Male 4:15 AM AFFIRMATIVE ACTION SPECIALIST Gender Identity Not on file Sexual Orientation Not on file documented as of this encounter Plan of Treatment Not on file documented as of this encounter Visit Diagnoses Not on filedocumented in this encounter
--- OUTSIDE RECORDS SUMMARY | 2024-06-25 02:00 | XMS_ITS | Encounter Summary ---
Author Organization [facility] Address 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
--- OUTSIDE RECORDS SUMMARY | 2024-06-25 02:00 | XMS_ITS | CONTINUITY OF CARE DOCUMENT ---
Author Name rasheed iqbal Address Unknown Organization [facility] Address [address] [place] [address] Phone [phone] Care Team Providers Care Electrode Cleaner Name Role Phone Pankaj MARTINI, González Unavailable [phone] SUNSHINE GALLEGOS MD Unavailable [phone] INSURANCE PROVIDERS Payer name Policy type / Coverage type Navjot red libertarian ID [facility] [id number] Other [id number]
--- OUTSIDE RECORDS SUMMARY | 2024-06-25 02:00 | XMS_ITS | Clinical Summary ---
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
--- NOTE | 2024-06-25 06:45 | WPDANESEPPF ---
Anes - Initial Pre Proc Eval Procedure: Operation Date: 06/25/24 07:30 Proposed Procedures p Repair Incarcerated Umbilical Hernia Repair, possible Mesh - Rosalie English MD Date/Time: 06/25/24 06:45 Surgeon: Rosalie English MD Pre Op Diagnosis: Incarcerated Umb Hernia 2.5 cm Patient Data Age: 74 Gender: M Height: 1.78 m Weight: 106 kg Allergies Allergy/AdvReac Type Severity Reaction Status Date / Time No Known Allergies Allergy Verified 06/18/24 14:22 Home Medications ?Medication ?Instructions ?Recorded ?Confirmed ?Type amlodipine 5 mg tablet 5 mg PO DAILY 06/14/19 06/18/24 History aspirin 81 mg tablet,delayed 81 mg PO DAILY 06/14/19 06/18/24 History release (Adult Low Dose Aspirin) doxazosin 8 mg tablet 8 mg PO BID 06/14/19 06/18/24 History dutasteride 0.5 mg capsule 0.5 mg PO DAILY 06/14/19 06/18/24 History glucosamine sulf dipot 1 cap PO DAILY 06/14/19 06/18/24 History chlr,msm,chond 550 mg-C 30 mg-nadine 1 mg capsule (Glucosamine Chondroitin) rosuvastatin 20 mg tablet 20 mg PO DAILY 06/14/19 06/18/24 History Daily Multivitamin 1 tab-cap PO DAILY 04/30/23 06/18/24 History celecoxib 200 mg capsule 200 mg PO BID 04/30/23 06/18/24 History fenofibrate micronized 134 mg 134 mg PO DAILY 04/30/23 06/18/24 History capsule metoprolol succinate 50 mg 50 mg PO DAILY 04/30/23 06/18/24 History tablet,extended release 24 hr trazodone 100 mg tablet 100 mg PO HS 04/30/23 06/18/24 History triamterene 37.5 1 cap PO DAILY 04/30/23 06/18/24 History mg-hydrochlorothiazide 25 mg capsule lactobacillus combination no.4 3 3,000 mmu cells PO DAILY 06/18/24 06/18/24 History billion cell capsule (Probiotic) Patient hx anesthesia problems: none Family hx anesthesia problems: none Results Review: All pre-operative results and documents have been reviewed as part of the pre-operative evaluation. [facility] Past Medical History Medical History (Updated 01/30/25 @ 06:45 by Devonte Adkins DO) Hyperlipidemia History of diverticulitis of colon ADRIANNA (obstructive sleep apnea) BPH (benign prostatic hyperplasia) Hypertension Bronchitis Surgical History Surgical History History of tonsillectomy History of knee replacement, total H/O colonoscopy Family History Family History Mother Breast cancer Father Diabetes mellitus Social History Social History Smoking packs per day: 2 Smoking cigarettes per day: 40.0 Years smoked: 20 Smoking pack-years: 40.00 Smoking status: Former smoker Smoking end date: 11/24/89 Alcohol intake: current Drinks per week: 4 Alcohol use details: Drinks 1-2 alcoholic beverages about 4 times per week Substance use: never Substance use type: does not use Do You Feel Safe in your Home?: Yes Lack of Transportation: No Lack of Food: Never True Current Housing: I Have Housing Concerned About Future Housing: No Difficulty Paying Gas/Electric Bills: No Difficulty Paying for Meds: No Currently Unemployed: No Education: Decline to Answer Difficulty w/ Childcare or Family Care: No Living arrangements: with family Spiritual care concerns: No Anes - Eval Final PreProcedure Day of Procedure 06/25/24 06:45 Patient weight: obese Heart: regular rate and rhythm Lungs: clear to auscultation Airway: Mallampati scale class III Neurological: alert and oriented Last oral intake: >/= 8 hours ASA classification: III Emergent: no Anesthetic plan: proceed Anesthesia type and monitoring: general ETT and standard monitoring Results Review: All pre-operative results and documents have been reviewed as part of the pre-operative evaluation. Informed Consent: The patient's anesthetic plan and its attendant risks and benefits were discussed with the patient/family/POA. Questions were solicited and answers provided to the satisfaction of the patient/family/POA.
[2024-06-25] MEDS: LACTATED RINGERS 1,000 ML 30 ML IV CONT ×2 (07:15→08:38)
[2024-06-25] MEDS: ACETAMINOPHEN 500 MG TABLET 1000 MG PO (07:15)
[2024-06-25] MEDS: KETOROLAC 15 MG/ML VIAL (*BKC) IV PUSH (07:15)
--- NOTE | 2024-06-25 07:17 | PM.IMHP ---
H&P: HPI History of Present Illness Date/Time: 06/25/24 07:17 Chief Complaint: incarcerated umbilical hernia Narrative: Jf returns to the office for re-evaluation of a incarcerated umbilical hernia. Patient states he noticed this about four years ago. States the bulge is tender with pressure. CT abd/pelvis from 04/29/23 showed a small umbilical hernia containing fat. He was previously evaluated for this in April 2023 and was offered hernia repair at that time, however he was asymptomatic and wanted to continue with monitoring. Review of Systems Review of Systems: All systems reviewed & are unremarkable except as noted in HPI and below PMFSH Past Medical History Medical History Hyperlipidemia History of diverticulitis of colon ADRIANNA (obstructive sleep apnea) BPH (benign prostatic hyperplasia) Hypertension Bronchitis Surgical History Surgical History History of tonsillectomy History of knee replacement, total H/O colonoscopy Family History Family History Mother Breast cancer Father Diabetes mellitus Social History Social History Smoking packs per day: 2 Smoking cigarettes per day: 40.0 Years smoked: 20 Smoking pack-years: 40.00 Smoking status: Former smoker Smoking end date: 11/24/89 Alcohol intake: current Drinks per week: 4 Alcohol use details: Drinks 1-2 alcoholic beverages about 4 times per week Substance use: never Substance use type: does not use Do You Feel Safe in your Home?: Yes Lack of Transportation: No Lack of Food: Never True Current Housing: I Have Housing Concerned About Future Housing: No Difficulty Paying Gas/Electric Bills: No Difficulty Paying for Meds: No Currently Unemployed: No Education: Decline to Answer Difficulty w/ Childcare or Family Care: No Living arrangements: with family Spiritual care concerns: No Meds Home Medications and Allergies Home Medications ?Medication ?Instructions ?Recorded ?Confirmed ?Type amlodipine 5 mg tablet 5 mg PO DAILY 06/14/19 06/18/24 History aspirin 81 mg tablet,delayed 81 mg PO DAILY 06/14/19 06/18/24 History release (Adult Low Dose Aspirin) doxazosin 8 mg tablet 8 mg PO BID 06/14/19 06/18/24 History dutasteride 0.5 mg capsule 0.5 mg PO DAILY 06/14/19 06/18/24 History glucosamine sulf dipot 1 cap PO DAILY 06/14/19 06/18/24 History chlr,msm,chond 550 mg-C 30 mg-nadine 1 mg capsule (Glucosamine Chondroitin) rosuvastatin 20 mg tablet 20 mg PO DAILY 06/14/19 06/18/24 History Daily Multivitamin 1 tab-cap PO DAILY 04/30/23 06/18/24 History celecoxib 200 mg capsule 200 mg PO BID 04/30/23 06/18/24 History fenofibrate micronized 134 mg 134 mg PO DAILY 04/30/23 06/18/24 History capsule metoprolol succinate 50 mg 50 mg PO DAILY 04/30/23 06/18/24 History tablet,extended release 24 hr trazodone 100 mg tablet 100 mg PO HS 04/30/23 06/18/24 History triamterene 37.5 1 cap PO DAILY 04/30/23 06/18/24 History mg-hydrochlorothiazide 25 mg capsule lactobacillus combination no.4 3 3,000 mmu cells PO DAILY 06/18/24 06/18/24 History billion cell capsule (Probiotic) Allergies Allergy/AdvReac Type Severity Reaction Status Date / Time No Known Allergies Allergy Verified 06/18/24 14:22 Exam Const: General: cooperative, comfortable and no acute distress Resp: Auscultation: clear to auscultation bilaterally Cardio: Rate: regular rate Rhythm: regular rhythm GI: GI Palp: Yes abdominal tenderness, Yes Soft to palpation, Yes Tenderness to palpation present (GI) and Yes Hernia present Other: incarcerated [facility] - TTP, firm knot, measures about 3 cm Skin: General skin exam: normal color Assessment and Plan Assessment and plan (1) Umbilical hernia, incarcerated: Code(s): K42.0 - Umbilical hernia with obstruction, without gangrene Status: Acute Assessment and Plan: 3 cm defect, will setup for repair c mesh
--- NOTE | 2024-06-25 07:19 | WPDHPUPDATE1 ---
History and Physical Update Update Date/Time: 06/25/24 07:19 History and Physical has been reviewed, including an updated exam of the patient. There are NO changes in the patient's condition. Risks, benefits, and alternatives have been discussed and questions answered. Patient agrees to proceed with procedure.
[2024-06-25] MEDS: ceFAZolin 2 GM/D5W 50 ML 2 GM/50 ML BAG IVPB (07:29)
[2024-06-25] MEDS: BUPIVACAINE/EPINEPHRINE 0.5% 50 ML VIAL 20 ML INFILTRATE (08:00)
--- NOTE | 2024-06-25 08:33 | W.PM.PROC2 ---
Procedure Note - Detailed Date of Procedure 06/25/24 Pre-op Diagnosis incarcerated umbilical hernia Post-op Diagnosis Same Procedure Performed repair of incarcerated umbilical hernia with mesh, defect measuring 3.5 cm Surgeon Rosalie English MD Anesthesia General Indications 74 y/o M c incarcerated umbilical hernia Findings incarcerated umbilical hernia c omentum and adjacent loop of SB, defect measuring 3.5 cm Description of Procedure The patient was taken to the operating room placed in the supine position. After adequate induction of general anesthesia, the patient was prepped and draped in the normal sterile fashion. A time-out was then done to verify the patient's identity, as well as the procedure being performed. I began by localizing the area around the umbilicus. I then made a curvilinear incision in the infraumbilical fold. This was taken down to level fascia. I then was able to bluntly dissect around the umbilicus. I then carefully dissected the umbilicus off the underlying fascia. I then noted a moderate defect with incarcerated omentum and an adjacent loop of small intestine. I was able to mobilize the incarcerated tissue and reduce it back into the abdominal cavity. This left an approximately 3.5cm defect. I then placed a 6.4 cm round piece of ventralex mesh in the underlay position. This was noted to have good, wide local coverage of the defect. I then closed this defect primarily with interrupted 0 Ethibond suture over the underlay mesh repair. I then reapproximated the umbilicus to the fascia with a 3 0 Vicryl U-stitch. The subcutaneous tissue was then closed with 3 0 Vicryl suture. The skin was closed with 4 0 Monocryl subcuticular suture. Dermabond was then placed on the wound. The patient tolerated the procedure well was extubated in the operating room postop. He will be transferred to the recovery room in stable condition. Implants 6.4 cm ventralex mesh in underlay position Estimated Blood Loss 10 Drains No Packing No Pathology None sent Complications No immediate complications Condition Stable Disposition PACU [facility] Billing Surgery - Charge Forward: Surgery Billing
[2024-06-25] MEDS: oxyCODONE HCL (*CRX) 5 MG TAB IR PO (09:27)
== END 2024-06-25 10:15 | disposition home or self-care (01) ==
PROVIDERS: PCP Family Medicine; Visit Provider Surgery
PROC: (CPT 49594; principal; 2024-06-25 07:30)
DX: K42.0 Umbilical hernia with obstruction, without gangrene (principal); Z87.891 Personal history of nicotine dependence; E66.9 Obesity, unspecified; Z68.33 Body mass index [BMI] 33.0-33.9, adult
CPT/HCPCS: 49594; A9270; C1781; J0690; J1100; J1885; J2003; J2405; J2704; J3010; J7120